=== PATIENT | female | born 1960 | race Caucasian/White ===

== ENCOUNTER 2017-01-14 15:51 | Inpatient (IN) | payer OTHER ==
[2017-01-14] MEDS ORDERED: SODIUM CHLORIDE 0.9% 1,000 ML IV STA (17:11)
--- NOTE | 2017-01-14 17:17 | ED ---
Extremity Problem HPI - General Chief complaint: Extremity Problem,Nontraumatic Stated complaint: Leg Pain/ Poss blood clot Time Seen by Provider: 01/14/17 16:55 Source: patient, RN notes reviewed, old records reviewed Mode of arrival: wheelchair Limitations: no limitations - History of Present Illness Initial comments: This is a 56-year-old female presenting to emergency Department with multiple chief complaints. Patient reports that she has left sided upper quadrant pain for the past 3 weeks. Patient reports that she also has been having intermittent chest pain and shortness of breath. She reports that she has all her medical records and history of [facility]. Patient reports that she does not want to go back there is a continued discharge her. Patient reports that over the past day she's noticed some increased pain in her left lower leg. She has a history of blood clots and has an IVC filter in. Patient reports that her filter is supposedly fractured. Patient states that she's had a stress test done which was all clear proximally month ago. Patient states that she has had no nausea or vomiting. Denies any diarrhea. 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 She reports that due to her Chyna-Danlos syndrome she's had multiple hernia repairs as her connective tissue is continuing to rip. Patient denies any fevers or chills, dysuria, hematuria, vomiting, headache, vision changes or skin changes. - Related Data Home Medications Medication Instructions Recorded Confirmed ALPRAZolam [Xanax] 1 mg PO TID 01/14/17 01/14/17 Aspirin EC [Ecotrin Low Dose] 81 mg PO DAILY 01/14/17 01/14/17 Calcium Carbonate/Vitamin D3 1 tab PO DAILY 01/14/17 01/14/17 [Calcium 600-Vit D3 400 Caplet] Carisoprodol [Soma] 350 mg PO QID 01/14/17 01/14/17 DULoxetine HCL [Cymbalta] 60 mg PO DAILY 01/14/17 01/14/17 Diclofenac Sodium [Voltaren] 75 mg PO BID 01/14/17 01/14/17 Furosemide [Lasix] 20 mg PO DAILY 01/14/17 01/14/17 Gabapentin [Neurontin] 900 mg PO TID 01/14/17 01/14/17 Levothyroxine Sodium [Synthroid] 100 mcg PO DAILY 01/14/17 01/14/17 Multivitamins, Thera [Multivitamin 1 tab PO DAILY 01/14/17 01/14/17 (formulary)] [place]-3 Fatty Acids/Fish Oil [Fish 1 cap PO BID 01/14/17 01/14/17 Oil 1,000 mg Capsule] Pramipexole [Mirapex] 0.5 mg PO HS 01/14/17 01/14/17 QUEtiapine [SEROquel] 100 mg PO HS 01/14/17 01/14/17 oxyCODONE-APAP 10-325MG [Percocet 1 tab PO QID PRN 01/14/17 01/14/17 10-325 mg] Allergies Allergy/AdvReac Type Severity Reaction Status Date / Time Penicillins Allergy Unknown Verified 01/14/17 17:05 rosuvastatin [From Crestor] Allergy Unknown Verified 01/14/17 17:05 Bviucsm-Dvs-Jkz Reductase Allergy Unknown Verified 01/14/17 17:05 Inhibitor Review of Systems ROS Statement: Those systems with pertinent positive or pertinent negative responses have been documented in the HPI. ROS Other: All systems not noted in ROS Statement are negative. Past Medical History Past Medical History: Fibromyalgia, Thyroid Disorder Additional Past Medical History / Comment(s): insomnia, chronic back pain, hip, and knee pain. EDS, History of Any Multi-Drug Resistant Organisms: None Reported Past Surgical History: Appendectomy, Back Surgery, Cholecystectomy, Hernia Repair, Hysterectomy, Orthopedic Surgery Past Psychological History: No Psychological Hx Reported Smoking Status: Current every day smoker Past Alcohol Use History: None Reported Past Drug Use History: Marijuana General Exam - General Exam Comments Initial Comments: This is a 56-year-old female. Patient does not appear to be in any acute distress. Limitations: no limitations General appearance: alert, in no apparent distress Head exam: Present: atraumatic, normocephalic, normal inspection Eye exam: Present: normal appearance, PERRL, EOMI. Absent: scleral icterus, conjunctival injection, periorbital swelling ENT exam: Present: normal exam, mucous membranes moist Neck exam: Present: normal inspection. Absent: tenderness, meningismus, lymphadenopathy Respiratory exam: Present: normal lung sounds bilaterally. Absent: respiratory distress, wheezes, rales, rhonchi, stridor Cardiovascular Exam: Present: regular rate, normal rhythm, normal heart sounds. Absent: systolic murmur, diastolic murmur, rubs, gallop, clicks GI/Abdominal exam: Present: soft, tenderness (Left upper quadrant tenderness.), normal bowel sounds. Absent: distended, guarding, rebound, rigid Extremities exam: Present: normal inspection, full ROM, normal capillary refill , other (Patient reports left sided calf Tenderness and bruising.). Absent: tenderness, pedal edema, joint swelling, calf tenderness Back exam: Present: normal inspection Neurological exam: Present: alert, oriented X3, CN II-XII intact Psychiatric exam: Present: normal affect, normal mood Skin exam: Present: warm, dry, intact, normal color. Absent: rash Course Vital Signs 01/14/17 01/14/17 01/14/17 16:05 16:57 18:37 Temperature 98.3 F 98.8 F 98.5 F Pulse Rate 83 70 76 Respiratory 18 16 16 Rate Blood Pressure 112/55 110/55 130/60 O2 Sat by Pulse 97 100 97 Oximetry 01/14/17 01/14/17 01/14/17 18:55 20:03 21:19 Temperature 97.7 F 98.3 F Pulse Rate 69 75 64 Respiratory 16 16 18 Rate Blood Pressure 130/60 109/54 113/81 O2 Sat by Pulse 97 96 95 Oximetry - Reevaluation(s) Reevaluation #1: 01/14/17 21:09 I did review patient's previous medical records from [facility]. She did receive a CT angiogram of the chest with contrast on 12/28/2016. The findings showed no filling defects or lack of contrast. Lung parenchyma demonstrates no focal treated or consolidative process. No pleural effusion. Thyroid gland appear normal. There is enlargement of the main pulmonary artery outflow track measuring up to 3.6 cm. No pericardial effusion, no mediastinal or hilar lymphadenopathy. On the same day patient also r myocardial perfusion imaging. The impression was noted to have no reversible ischemia, left ventricular ejection fraction is 56%. also received a CT abdomen and pelvis at that time. He shows no focal inflammatory process in the abdomen or pelvis. Postsurgical changes within the anterior abdominal wall with a small amount of simple appearing fluid seen in the operative site likely related to a small residual postsurgical seroma. Medical Decision Making - Medical Decision Making This is a 56-year-old female presenting to emergency Department with multiple chief complaints. Patient reports that she has left sided upper quadrant pain for the past 3 weeks. Patient reports that she also has been having intermittent chest pain and shortness of breath. She reports that she has all her medical records and history of [facility]. Patient reports that she does not want to go back there is a continued discharge her. Patient reports that over the past day she's noticed some increased pain in her left lower leg. She has a history of blood clots and has an IVC filter in. Patient reports that her filter is supposedly fractured. Patient states that she's had a stress test done which was all clear proximally month ago. Patient states that she has had no nausea or vomiting. Asians upper ultrasound was negative. Chest x-ray and KUB x-ray also benign. Patient's lab work was reviewed. The only abnormality was a mildly elevated d- dimer 0.65. Patient did receive a CT DAVALOS chest. Initially the radiologist read that there was no pulmonary and wasn't. tax examining technician stated that she saw something abnormal and pointed it out to myself. I did talk to Dr. Sharif over the phone and he reread the CT. Dr. Sharif now concludes that there is a pulmonary embolism was him represent on it and 86. Patient will be started on high dose heparin. Discussed that she does not need a further CTs of her abdomen and pelvis at this time as patient has had a full workup done at [facility]. Patient's images were reviewed. Her CT abdomen and pelvis showed evidence of surgical seroma. Nuclear medicine stress test showed no acute ischemic changes. CT of DAVALOS chest at that time was negative for PE. Vessels case with Dr. Templeton. Patient will be admitted to Dr. Blake take [facility] call. - Lab Data Result diagrams: 01/14/17 17:45 01/14/17 17:45 Lab Results 01/14/17 01/14/17 01/14/17 Range/Units 17:45 17:45 17:45 WBC 7.8 (3.8-10.6) k/uL RBC 4.08 (3.80-5.40) m/uL Hgb 14.2 (11.4-16.0) gm/dL Hct 41.9 (34.0-46.0) % MCV 102.8 H (80.0-100.0) fL MCH 34.7 (25.0-35.0) pg MCHC 33.8 (31.0-37.0) g/dL RDW 13.7 (11.5-15.5) % Plt Count 234 (150-450) k/uL Neutrophils % 65 % Lymphocytes % 28 % Monocytes % 3 % Eosinophils % 2 % Basophils % 1 % Neutrophils # 5.0 (1.3-7.7) k/uL Lymphocytes # 2.2 (1.0-4.8) k/uL Monocytes # 0.2 (0-1.0) k/uL Eosinophils # 0.2 (0-0.7) k/uL Basophils # 0.0 (0-0.2) k/uL Macrocytosis Slight PT (9.0-12.0) sec INR (<1.1) APTT (22.0-30.0) sec D-Dimer (<0.60) mg/L FEU Sodium 140 (137-145) mmol/L Potassium 4.1 (3.5-5.1) mmol/L Chloride 107 (98-107) mmol/L Carbon Dioxide 24 (22-30) mmol/L Anion Gap 9 mmol/L BUN 15 (7-17) mg/dL Creatinine 0.73 (0.52-1.04) mg/dL Est GFR (MDRD) Af Amer >60 (>60 ml/min/1.73 sqM) Est GFR (MDRD) Non-Af >60 (>60 ml/min/1.73 sqM) Glucose 103 H (74-99) mg/dL Calcium 8.9 (8.4-10.2) mg/dL Magnesium 2.0 (1.6-2.3) mg/dL Total Bilirubin 0.5 (0.2-1.3) mg/dL AST 24 (14-36) U/L ALT 24 (9-52) U/L Alkaline Phosphatase 80 (38-126) U/L Total Creatine Kinase 55 (30-135) U/L CK-MB (CK-2) 0.5 (0.0-2.4) ng/mL CK-MB (CK-2) Rel Index 0.9 Troponin I <0.012 (0.000-0.034) ng/mL NT-Pro-B Natriuret Pep pg/mL Total Protein 6.8 (6.3-8.2) g/dL Albumin 3.9 (3.5-5.0) g/dL Amylase 50 (30-110) U/L Lipase 95 (23-300) U/L Urine Color Urine Appearance (Clear) Urine pH (5.0-8.0) Ur Specific [place] (1.001-1.035) Urine Protein (Negative) Urine Glucose (UA) (Negative) Urine Ketones (Negative) Urine Blood (Negative) Urine Nitrite (Negative) Urine Bilirubin (Negative) Urine Urobilinogen (<2.0) mg/dL Ur Leukocyte Esterase (Negative) Urine RBC (0-5) /hpf Urine WBC (0-5) /hpf Amorphous Sediment (None) /hpf Urine Bacteria (None) /hpf Urine Mucus (None) /hpf 01/14/17 01/14/17 01/14/17 Range/Units 17:45 17:45 18:45 WBC (3.8-10.6) k/uL RBC (3.80-5.40) m/uL Hgb (11.4-16.0) gm/dL Hct (34.0-46.0) % MCV (80.0-100.0) fL MCH (25.0-35.0) pg MCHC (31.0-37.0) g/dL RDW (11.5-15.5) % Plt Count (150-450) k/uL Neutrophils % % Lymphocytes % % Monocytes % % Eosinophils % % Basophils % % Neutrophils # (1.3-7.7) k/uL Lymphocytes # (1.0-4.8) k/uL Monocytes # (0-1.0) k/uL Eosinophils # (0-0.7) k/uL Basophils # (0-0.2) k/uL Macrocytosis PT 9.7 (9.0-12.0) sec INR 0.9 (<1.1) APTT 26.1 (22.0-30.0) sec D-Dimer 0.65 H (<0.60) mg/L FEU Sodium (137-145) mmol/L Potassium (3.5-5.1) mmol/L Chloride (98-107) mmol/L Carbon Dioxide (22-30) mmol/L Anion Gap mmol/L BUN (7-17) mg/dL Creatinine (0.52-1.04) mg/dL Est GFR (MDRD) Af Amer (>60 ml/min/1.73 sqM) Est GFR (MDRD) Non-Af (>60 ml/min/1.73 sqM) Glucose (74-99) mg/dL Calcium (8.4-10.2) mg/dL Magnesium (1.6-2.3) mg/dL Total Bilirubin (0.2-1.3) mg/dL AST (14-36) U/L ALT (9-52) U/L Alkaline Phosphatase (38-126) U/L Total Creatine Kinase (30-135) U/L CK-MB (CK-2) (0.0-2.4) ng/mL CK-MB (CK-2) Rel Index Troponin I (0.000-0.034) ng/mL NT-Pro-B Natriuret Pep 42 pg/mL Total Protein (6.3-8.2) g/dL Albumin (3.5-5.0) g/dL Amylase (30-110) U/L Lipase (23-300) U/L Urine Color Yellow Urine Appearance Clear (Clear) Urine pH 7.0 (5.0-8.0) Ur Specific [place] 1.015 (1.001-1.035) Urine Protein Negative (Negative) Urine Glucose (UA) Negative (Negative) Urine Ketones Negative (Negative) Urine Blood Negative (Negative) Urine Nitrite Negative (Negative) Urine Bilirubin Negative (Negative) Urine Urobilinogen <2.0 (<2.0) mg/dL Ur Leukocyte Esterase Trace H (Negative) Urine RBC <1 (0-5) /hpf Urine WBC 2 (0-5) /hpf Amorphous Sediment Rare H (None) /hpf Urine Bacteria Rare H (None) /hpf Urine Mucus Rare H (None) /hpf 01/14/17 17:23 EKG shows normal sinus rhythm. Ventricular rate of 73 bpm. ND interval 158 ms. QRS duration 94 ms. QT QTc is 48/449 ms. No evidence of ST elevation or T -wave inversion or atrial or ventricular arrhythmias. - Radiology Data Radiology results: report reviewed CT DAVALOS chest Exam is reviewed and is evidence of small emboli filling defect in the right lower lobe pulmonary artery at the medial basal segment branch. This exam is positive for PE in the right lower lobe. This is best seen on image 86. The Venous Dopplers negative for DVT. No evidence of mass in the area of the palpable lump. Chest x-ray shows mild cardiomegaly. No acute lung disease Disposition Clinical Impression: Pulmonary embolism Disposition: ADMITTED IP TO THIS HOSP Condition: Stable Time of Disposition: 21:20
[2017-01-14] MEDS: SODIUM CHLORIDE 0.9% 1,000 ML IV STA ×2 (17:37→23:56)
[2017-01-14 17:51] LABS: Basophils % (A) 1 %; CH 35.5; CHCM 34.7; Eosinophils # (A) 0.2 k/uL (0-0.7); Eosinophils % (A) 2 %; HCT 41.9 % (34.0-46.0); HDW 2.63; HGB 14.2 gm/dL (11.4-16.0); Luc % (Auto) 1; Lymphocytes # (A) 2.2 k/uL (1.0-4.8); Lymphocytes % (A) 28 %; MCH 34.7 pg (25.0-35.0); MCHC 33.8 g/dL (31.0-37.0); MCV 102.8 fL (80.0-100.0); Macrocytosis Slight; Mean Platelet Volume 7.2; Monocytes # (A) 0.2 k/uL (0-1.0); Monocytes % (A) 3 %; Neutrophils % (A) 65 %; RBC 4.08 m/uL (3.80-5.40); RDW 13.7 % (11.5-15.5); WBC 7.8 k/uL (3.8-10.6)
[2017-01-14 17:58] LABS: ALT 24 U/L (9-52); AST 24 U/L (14-36); Alkaline Phosphatase 80 U/L (38-126); Amylase 50 U/L (30-110); Anion Gap 9 mmol/L; Blood Urea Nitrogen 15 mg/dL (7-17); Calcium 8.9 mg/dL (8.4-10.2); Carbon Dioxide 24 mmol/L (22-30); Chloride 107 mmol/L (98-107); Glucose 103 mg/dL (74-99); Non-African American GFR(MDRD) >60 (>60 ml/min/1.73 sqM); Potassium 4.1 mmol/L (3.5-5.1); Sodium 140 mmol/L (137-145); Total Bilirubin 0.5 mg/dL (0.2-1.3); Total Protein 6.8 g/dL (6.3-8.2)
[2017-01-14 18:06] LABS: INR 0.9 (<1.1); Partial Thromboplastin Time 26.1 sec (22.0-30.0); Prothrombin Time 9.7 sec (9.0-12.0)
[2017-01-14 18:15] LABS: Creatine Kinase 55 U/L (30-135)
--- NOTE | 2017-01-14 18:19 | US ---
EXAMINATION TYPE: US venous doppler duplex LE LT DATE OF EXAM: 01/14/2017 6:10 PM COMPARISON: NONE CLINICAL HISTORY: Pain. SIDE PERFORMED: Left TECHNIQUE: The lower extremity deep venous system is examined utilizing real time linear array sonog nirmal with graded compression, doppler sonography and color-flow sonography. VESSELS IMAGED: External Iliac Vein (EIV) Common Femoral Vein Deep Femoral Vein Greater Saphenous Vein * Femoral Vein Popliteal Vein Small Saphenous Vein * Proximal Calf Veins (* superficial vessels) Left Leg: Negative for DVT. No abnormality visualized at the area of the patient's palpable lump. IMPRESSION: No evidence of deep venous thrombosis. No sonographic evidence of a mass in the area o f the palpable lump.
[2017-01-14 18:27] LABS: Creatine Kinase MB 0.5 ng/mL (0.0-2.4); Troponin I <0.012 ng/mL (0.000-0.034)
[2017-01-14] MEDS ORDERED: RX INFO: IV CONTRAST WAS GIVEN 1 EACH MISC MISCELLANE PRN (18:33)
--- NOTE | 2017-01-14 18:33 | XR ---
EXAMINATION TYPE: XR KUB DATE OF EXAM: 01/14/2017 COMPARISON: NONE HISTORY: Abdominal pain TECHNIQUE: 2 views FINDINGS: There is no sign of intestinal obstruction or pneumoperitoneum. Fecal pattern is normal. Th ere are no pathologic calcifications over the kidneys. There are clips from cholecystectomy. There is no sign of a mass. IMPRESSION: Nonacute abdomen. Inferior vena cava filter is noted.
--- NOTE | 2017-01-14 18:33 | XR ---
EXAMINATION TYPE: XR chest 2V DATE OF EXAM: 01/14/2017 COMPARISON: NONE HISTORY: Chest pain TECHNIQUE: Frontal and lateral views of the chest are obtained. FINDINGS: There is no heart failure nor confluent pneumonic infiltrate. Heart appears slightly enlar ged. There is no pleural effusion. There are chest leads. Bony thorax appears intact. IMPRESSION: Mild cardiomegaly. No acute lung disease.
[2017-01-14] MEDS ORDERED: HYDROmorphone 1 MG/ML 1 ML SYRINGE IVP STA ×2 (18:34→20:25)
[2017-01-14 19:11] LABS: Amorphous Sediment,Urine Rare /hpf; Appearance,Urine Clear (Clear); Bacteria,Urine Rare /hpf; Bilirubin,Urine Negative (Negative); Glucose,Urine (UA) Negative (Negative); Ketones,Urine Negative (Negative); Leukocyte Esterase,Urine Trace (Negative); Mucus,Urine Rare /hpf; Nitrite,Urine Negative (Negative); Particle Count 5475; Protein,Urine Negative (Negative); RBC,Urine <1 /hpf (0-5); Specific Gravity,Urine 1.015 (1.001-1.035); UA Billing (MACRO vs. MICRO) MICRO; Urobilinogen,Urine <2.0 mg/dL (<2.0); WBC,Urine 2 /hpf (0-5)
--- NOTE | 2017-01-14 19:27 | CT ---
EXAMINATION TYPE: CT chest angio for PE DATE OF EXAM: 01/14/2017 COMPARISON: NONE HISTORY: Shortness of breath and chest pain. CT DLP: 635.4 mGycm Automated exposure control for dose reduction was used. CONTRAST: CT Chest for pulmonary embolism performed with with IV Contrast, patient injected with 100 mL of Omni paque 350. FINDINGS: There are 3-D post processed images. I see no filling defects in the pulmonary arteries. There is no evidence of aortic aneurysm or dissec tion. Heart size is normal. There is no pericardial effusion. There are no hilar masses. There is no mediastinal adenopathy. The lungs are clear of consolidation. There is no evidence of a pulmonary mass. There is no pleural e ffusion. There are small linear density at the right posterior lung base. There is spurring in the th oracic spine. I see no focal bone destruction. Inferior vena cava filter is noted. IMPRESSION: No evidence of pulmonary embolism. Minimal subsegmental atelectasis or scarring at the right posterio r lung base.
[2017-01-14] MEDS ORDERED: HEPARIN SODIUM,PORCINE 10,000 UNIT/ML 1 ML VIAL IV ONE (20:54)
[2017-01-14] MEDS: HEPARIN SODIUM,PORCINE 5,000 UNIT/ML 1 ML VIAL IV PRN (21:10)
[2017-01-14] MEDS: HEPARIN SODIUM,PORCINE/D5W PMX 25,000 UNIT in DEXTROSE/WATER 1 500ML.BAG IV SCH (21:17)
[2017-01-14] MEDS ORDERED: NALOXONE 0.4 MG/ML 1 ML VIAL IV PRN (21:20)
[2017-01-14] MEDS ORDERED: KETOROLAC 30 MG/ML 1 ML VIAL IVP PRN (21:20)
[2017-01-14] MEDS ORDERED: ACETAMINOPHEN TAB 325 MG TAB PO PRN (21:20)
[2017-01-14] MEDS ORDERED: LORazepam 2 MG/ML SYRINGE IV PRN (21:20)
[2017-01-14] MEDS ORDERED: ONDANSETRON 4 MG/2 ML VIAL IVP PRN (21:20)
[2017-01-14] MEDS ORDERED: PRAMIPEXOLE 0.5 MG TAB PO STA (22:24)
[2017-01-14] MEDS ORDERED: QUEtiapine 100 MG TAB PO STA (22:24)
[2017-01-14] MEDS ORDERED: ETODOLAC 400 MG TAB PO STA (22:46)
[2017-01-14 23:01] VITALS: BMI 42.9
[2017-01-14] MEDS: HYDROmorphone 1 MG/ML 1 ML SYRINGE IV PRN (23:53)
[2017-01-14] MEDS: ALPRAZolam 0.5 MG TAB PO SCH (23:55)
[2017-01-14] MEDS: GABAPENTIN 300 MG CAP PO SCH (23:56)
[2017-01-15] MEDS: SODIUM CHLORIDE 0.9% 1,000 ML IV SCH ×3 (06:34→18:48)
[2017-01-15] MEDS: LEVOTHYROXINE 100 MCG TAB PO SCH (06:36)
[2017-01-15 06:49] LABS: Basophils % (A) 0 %; CH 34.5; CHCM 33.6; Eosinophils # (A) 0.2 k/uL (0-0.7); Eosinophils % (A) 3 %; HCT 39.5 % (34.0-46.0); HDW 2.74; HGB 13.7 gm/dL (11.4-16.0); Luc # (Auto) 0.12; Luc % (Auto) 3; Lymphocytes # (A) 2.3 k/uL (1.0-4.8); Lymphocytes % (A) 49 %; MCH 35.9 pg (25.0-35.0); MCHC 34.6 g/dL (31.0-37.0); MCV 103.5 fL (80.0-100.0); Macrocytosis Slight; Mean Platelet Volume 7.1; Monocytes # (A) 0.2 k/uL (0-1.0); Monocytes % (A) 4 %; Neutrophils # (A) 1.9 k/uL (1.3-7.7); Neutrophils % (A) 41 %; RBC 3.82 m/uL (3.80-5.40); RDW 13.6 % (11.5-15.5); WBC 4.7 k/uL (3.8-10.6); WBC (Perox) 4.94
[2017-01-15] MEDS: HYDROmorphone 1 MG/ML 1 ML SYRINGE IV PRN ×4 (08:24→21:26)
[2017-01-15] MEDS: ALPRAZolam 0.5 MG TAB PO SCH ×3 (08:25→21:26)
[2017-01-15] MEDS: GABAPENTIN 300 MG CAP PO SCH ×3 (08:27→21:26)
[2017-01-15] MEDS: DULoxetine HCL 60 MG CAPSULE.DR PO SCH (08:28)
[2017-01-15] MEDS: FUROSEMIDE 20 MG TAB PO SCH (08:28)
[2017-01-15] MEDS: ETODOLAC 400 MG TAB PO SCH ×2 (08:28→21:25)
[2017-01-15] MEDS: ASPIRIN 81 MG CHEW PO SCH (08:41)
[2017-01-15] MEDS ORDERED: PANTOPRAZOLE 40 MG/10 ML VIAL IV SCH (09:00)
[2017-01-15] MEDS: HEPARIN SODIUM,PORCINE/D5W PMX 25,000 UNIT in DEXTROSE/WATER 1 500ML.BAG IV SCH ×2 (09:45→21:26)
[2017-01-15] MEDS: CALCIUM CARB-VIT D 500MG-200UN 1 EACH TAB PO SCH (13:20)
--- NOTE | 2017-01-15 15:37 | P.PN ---
Subjective 56-year-old female seen in the emergency room shortness of breath. Patient presents emergency room with a chief complaint of left-sided upper quadrant pain stated it started 3 weeks prior. States it's been intermittent. States she receives most healthcare [facility] patient gives a history of having blood clots has IVC filter in patient denies any nausea vomiting denies any diarrhea does have a history of teresa danlos Computed tomography scan of the chest shows right lower lobe pulmonary emboli patient currently is on IV heparin Doppler to the left leg show no evidence of a DVT consults for hematology and pulmonary pending Objective - Vital Signs Vital signs: Vital Signs Temp 98 F 01/15/17 12:00 Pulse 71 01/15/17 12:00 Resp 18 01/15/17 12:00 BP 116/62 01/15/17 12:00 Pulse Ox 93 L 01/15/17 12:00 Intake & Output 01/14/17 01/15/17 01/15/17 18:59 06:59 18:59 Intake Total 1280.987 850.677 Output Total 650 Balance 1280.987 200.677 Weight 113.398 kg 122.3 kg Intake: IV 900 Sodium Chloride 0.9% 1, 900 000 ml @ 100 mls/hr IV . Q10H JUSTINA Rx#:[id number] Intake, IV Titration 380.987 113.677 Amount Heparin Sodium,Porcine/ 380.987 113.677 D5w Pmx 25,000 unit In Dextrose/Water 1 500ml. bag @ 18 UNITS/KG/HR 40. 82 mls/hr IV .[id number] JUSTINA Rx#:[id number] Oral 737 Output: Urine 650 Other: # Voids 1 3 - Exam Physical exam 56-year-old female sitting present on Distress Lungs essentially clear adequate air movement Heart S1-S2 audible regular no murmur Abdomen soft nontender not distended no nausea no vomiting Extremities no edema - Labs CBC & Chem 7: 01/15/17 06:25 01/14/17 17:45 Labs: Abnormal Lab Results - Last 24 Hours (Table) 01/14/17 01/14/17 01/14/17 Range/Units 17:45 17:45 17:45 MCV 102.8 H (80.0-100.0) fL MCH (25.0-35.0) pg APTT (22.0-30.0) sec D-Dimer 0.65 H (<0.60) mg/L FEU Glucose 103 H (74-99) mg/dL Ur Leukocyte Esterase (Negative) Amorphous Sediment (None) /hpf Urine Bacteria (None) /hpf Urine Mucus (None) /hpf 01/14/17 01/15/17 01/15/17 Range/Units 18:45 02:38 06:25 MCV 103.5 H (80.0-100.0) fL MCH 35.9 H (25.0-35.0) pg APTT 88.9 H (22.0-30.0) sec D-Dimer (<0.60) mg/L FEU Glucose (74-99) mg/dL Ur Leukocyte Esterase Trace H (Negative) Amorphous Sediment Rare H (None) /hpf Urine Bacteria Rare H (None) /hpf Urine Mucus Rare H (None) /hpf 01/15/17 Range/Units 12:55 MCV (80.0-100.0) fL MCH (25.0-35.0) pg APTT 48.3 H (22.0-30.0) sec D-Dimer (<0.60) mg/L FEU Glucose (74-99) mg/dL Ur Leukocyte Esterase (Negative) Amorphous Sediment (None) /hpf Urine Bacteria (None) /hpf Urine Mucus (None) /hpf Assessment and Plan Plan: Impression Present on admission left sided upper quadrant pain onset 3 weeks prior with intermittent episodes of shortness of breath suspect due to a pulmonary emboli right lobe History of previous pulmonary emboli with IVC filter in place Prior nuclear stress test done one month prior report indicates no acute ischemic changes Recent computed tomography scan of the chest showed no evidence of a pulmonary emboli Depressive disorder nonspecified Plan Await pulmonary's eval pending Await Dr. Hester's eval reoccurring pulmonary emboli Resume home meds as appropriate Follow up on the echocardiogram continue IV heparin DVT and GI prophylaxis The above dictated assessment and findings were discussed with dr warner . Impression and the plan of care have been dictated as directed. Padmini Khan nurse practitioner acting as a scribe for dr warner .
--- NOTE | 2017-01-15 17:35 | CONS ---
Lupe Templeton is a 56-year-old female who comes in with shortness of breath for about 3 weeks' duration. She also had been having some chest pain which is intermittent. She was seen at [facility]. Apparently a CT scan was done, which showed no evidence of any PE. She also had abdominal pain and subsequently came back to the ED, as she had ongoing symptomatology. PAST MEDICAL HISTORY: Positive for pulmonary emboli in the past, Kumar filter placement apparently 12 years ago, at which time she had been on Coumadin for approximately a year and this had been discontinued. History of chronic back pain, hip pain, knee pain, fibromyalgia, history of Chyna-Danlos syndrome, appendectomy, back surgery, hernia repair. SOCIAL HISTORY: The patient smokes marijuana. She smokes about a pack of cigarettes per day. FAMILY HISTORY: Negative for history of thromboembolism. Medications prior to admission were: 1. Seroquel. 2. Mirapex. 3. Lasix. 4. Ecotrin. 5. Fish oil. 6. Multivitamin. 7. Soma. 8. Calcium with vitamin D3. 9. Xanax. 10. Percocet. 11. Voltaren. 12. Cymbalta. 13. Synthroid. 14. Neurontin. REVIEW OF SYSTEMS: Positive for obesity. On physical examination, respiratory rate is 18, pulse rate of 77. She is afebrile. Blood pressure 97/54, O2 sat on room air is 94%. HEENT: Unremarkable. CHEST: Clear. CARDIOVASCULAR: S1 and S2. ABDOMEN: Soft. There is trace pedal edema. There is some tenderness in the left calf. Venous duplex of the left lower extremity is negative for blood clots. CT scan of the chest shows evidence of pulmonary embolus in the right lower lobe, pulmonary artery in the medial basal segment branch. IMPRESSION: 1. Recurrent pulmonary embolism. Will continue IV heparin and would recommend lifelong anticoagulation. 2. Would recommend Hematology/Oncology evaluation. 3. Keep her on supplemental oxygen. Increase her activity level. Continue her on her current medications, which were reviewed. She was counseled regarding her condition and these recommendations, has a fair understanding of these recommendations.
--- NOTE | 2017-01-15 20:06 | P.CONS ---
History of Present Illness - Reason for Consult Consult date: 01/15/17 Recurrent pulmonary embolism - History of Present Illness The patient is a 56-year-old lady with multiple medical problems. 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 Her prior episode apparently was diagnosed after admission for cervical fusion. She was treated with the Coumadin for about a year and also had an IVC filter placed. She states that she had a hypercoagulable workup done subsequently which was negative. She could not recall any other aggravating factor per her previous episode. The patient has been feeling somewhat short of breath, with some tightness of the chest for about 3 weeks now. She was seen at [facility], with CT of the chest apparently being negative. Due to progression of symptoms, which included the pleuritic type symptoms, she came to the emergency room here where CTA of the chest revealed evidence of a right lower lobe pulmonary embolus. Dopplers of the lower except these were negative. She was started on IV heparin and admitted further management. She cannot recall any specific aggravating factors such as prolonged travel, surgeries or hospitalizations in the last 3-4 months. Due to her muscular skeletal issues activity level is reduced but she states that she does her best to move around as much as possible. She does continue to smoke. Past Medical History Past Medical History: Fibromyalgia, Thyroid Disorder Additional Past Medical History / Comment(s): insomnia, chronic back pain d/t DDD, hip, and knee pain. EDS History of Any Multi-Drug Resistant Organisms: None Reported Past Surgical History: Appendectomy, Section, Cholecystectomy, Hernia Repair, Hysterectomy, Orthopedic Surgery Additional Past Surgical History / Comment(s): C6-C7 Fusion of the neck, green field filter- which is fractured Past Anesthesia/Blood Transfusion Reactions: No Reported Reaction Past Psychological History: No Psychological Hx Reported Smoking Status: Current every day smoker Past Alcohol Use History: None Reported Past Drug Use History: None Reported Medications and Allergies Home Medications Medication Instructions Recorded Confirmed Type ALPRAZolam [Xanax] 1 mg PO TID 01/14/17 01/14/17 History Aspirin EC [Ecotrin Low Dose] 81 mg PO DAILY 01/14/17 01/14/17 History Calcium Carbonate/Vitamin D3 1 tab PO DAILY 01/14/17 01/14/17 History [Calcium 600-Vit D3 400 Caplet] Carisoprodol [Soma] 350 mg PO QID 01/14/17 01/14/17 History DULoxetine HCL [Cymbalta] 60 mg PO DAILY 01/14/17 01/14/17 History Diclofenac Sodium [Voltaren] 75 mg PO BID 01/14/17 01/14/17 History Furosemide [Lasix] 20 mg PO DAILY 01/14/17 01/14/17 History Gabapentin [Neurontin] 900 mg PO TID 01/14/17 01/14/17 History Levothyroxine Sodium [Synthroid] 100 mcg PO DAILY 01/14/17 01/14/17 History Multivitamins, Thera [Multivitamin 1 tab PO DAILY 01/14/17 01/14/17 History (formulary)] [place]-3 Fatty Acids/Fish Oil [Fish 1 cap PO BID 01/14/17 01/14/17 History Oil 1,000 mg Capsule] Pramipexole [Mirapex] 0.5 mg PO HS 01/14/17 01/14/17 History QUEtiapine [SEROquel] 100 mg PO HS 01/14/17 01/14/17 History oxyCODONE-APAP 10-325MG [Percocet 1 tab PO QID PRN 01/14/17 01/14/17 History 10-325 mg] Allergies Allergy/AdvReac Type Severity Reaction Status Date / Time Penicillins Allergy Unknown Verified 01/14/17 17:05 rosuvastatin [From Crestor] Allergy Unknown Verified 01/14/17 17:05 Mkrkftv-Jbt-Art Reductase Allergy Unknown Verified 01/14/17 17:05 Inhibitor Physical Exam Vitals: Vital Signs Temp Pulse Pulse Resp BP BP Pulse Ox 01/15/17 16:00 68 18 108/66 95 01/15/17 12:00 98 F 71 18 116/62 93 L 01/15/17 08:00 77 18 97/54 94 L 01/15/17 04:00 62 18 94/47 93 L 01/15/17 00:00 72 16 01/14/17 22:50 97.8 F 97 18 103/62 97 01/14/17 21:19 98.3 F 64 18 113/81 95 01/14/17 20:03 75 16 109/54 96 Intake and Output 01/15/17 01/15/17 01/15/17 06:59 14:59 22:59 Intake Total 1180.987 850.677 237 Output Total 650 Balance 1180.987 200.677 237 Intake: IV 800 Sodium Chloride 0.9% 1, 800 000 ml @ 100 mls/hr IV . Q10H JUSTINA Rx#:[id number] Intake, IV Titration 380.987 113.677 Amount Heparin Sodium,Porcine/ 380.987 113.677 D5w Pmx 25,000 unit In Dextrose/Water 1 500ml. bag @ 18 UNITS/KG/HR 40. 82 mls/hr IV .[id number] JUSTINA Rx#:[id number] Oral 737 237 Output: Urine 650 Other: # Voids 3 Weight 122.3 kg Results CBC & Chem 7: 01/15/17 06:25 01/14/17 17:45 Labs: Abnormal Lab Results - Last 24 Hours (Table) 01/15/17 01/15/17 01/15/17 Range/Units 02:38 06:25 12:55 MCV 103.5 H (80.0-100.0) fL MCH 35.9 H (25.0-35.0) pg APTT 88.9 H 48.3 H (22.0-30.0) sec Chest x-ray: report reviewed CT scan - chest: report reviewed Venous US: report reviewed Assessment and Plan (1) Pulmonary embolism Narrative/Plan: This is a recurrent event, with no identifiable new provoking factors. She does have some baseline soft, predisposing factors such as generally reduced level of activity and smoking. She is currently on IV heparin and feeling better. Agree with pulmonary recommendations that the patient should be anticoagulated for life, as long as she tolerates treatment well. As noted, the patient has had a hypercoagulable workup in the past that was negative. She tolerated Coumadin well in the past. As prolonged and the correlation is anticipated, the newer direct factor inhibitors would be quite appropriate for her as long as they're covered by her insurance. She was somewhat apprehensive about side effects. She was advised that it had studies show that the risk of major bleeding is the same or somewhat lesser than Coumadin. While the official antidote is not approved, the effects of the direct factor X inhibitors can be reversed with PCC-4. In addition, clinical trials of a specific antidote have been successful. Status: Acute (2) Macrocytosis without anemia Narrative/Plan: The patient has microcytosis, without anemia. She denies any history of alcohol use. There is no known history of liver disease. Lab work up for the same will be ordered. Status: Acute Plan: The patient has an IVC filter in situ. She was advised that the filters are not reliable after 1-2 years EGD due to development of collaterals. Per the patient, chest x-ray a 24 had shown "fracture" in the filter. According to her request, [facility] surgery will be consulted to evaluate her for the same.
[2017-01-15] MEDS: PRAMIPEXOLE 0.5 MG TAB PO SCH (21:25)
[2017-01-15] MEDS: QUEtiapine 100 MG TAB PO SCH (21:26)
[2017-01-16] MEDS: HYDROmorphone 1 MG/ML 1 ML SYRINGE IV PRN ×6 (01:37→21:36)
[2017-01-16] MEDS: SODIUM CHLORIDE 0.9% 1,000 ML IV SCH ×2 (03:41→15:20)
[2017-01-16] MEDS: LEVOTHYROXINE 100 MCG TAB PO SCH (06:07)
[2017-01-16 06:47] LABS: Basophils % (A) 1 %; CHCM 33.6; Eosinophils # (A) 0.1 k/uL (0-0.7); Eosinophils % (A) 3 %; HDW 2.66; HGB 12.8 gm/dL (11.4-16.0); Luc # (Auto) 0.07; Luc % (Auto) 2; Lymphocytes # (A) 1.7 k/uL (1.0-4.8); Lymphocytes % (A) 42 %; MCH 34.4 pg (25.0-35.0); MCHC 32.9 g/dL (31.0-37.0); MCV 104.6 fL (80.0-100.0); Macrocytosis Slight; Mean Platelet Volume 7.3; Monocytes # (A) 0.2 k/uL (0-1.0); Monocytes % (A) 4 %; Neutrophils # (A) 1.9 k/uL (1.3-7.7); Neutrophils % (A) 48 %; RBC 3.73 m/uL (3.80-5.40); RDW 13.8 % (11.5-15.5); WBC 3.9 k/uL (3.8-10.6); WBC (Perox) 3.97
--- NOTE | 2017-01-16 08:00 | XR ---
EXAMINATION TYPE: XR abdomen 2V DATE OF EXAM ORDERED: 01/16/2017 HISTORY: RLL PE. COMPARISON: Previous study dated 08/02/2017. FINDINGS: The lung bases appear clear. There is been a previous cholecystectomy. An inferior vena cava filter is in place. The abdominal gas pattern is normal. There is no evidence of obstruction or free air. There is a tiny , stable calcification in the right hemipelvis. It would be difficult to exclude a distal right urete miladis calculus. IMPRESSION: 1. NO EVIDENCE OF OBSTRUCTION. 2. IT WOULD BE DIFFICULT TO EXCLUDE A DISTAL RIGHT URETERIC CALCULUS.
[2017-01-16] MEDS: ETODOLAC 400 MG TAB PO SCH ×2 (08:58→21:31)
[2017-01-16] MEDS: ASPIRIN 81 MG CHEW PO SCH (08:59)
[2017-01-16] MEDS: GABAPENTIN 300 MG CAP PO SCH ×3 (08:59→21:35)
[2017-01-16] MEDS: DULoxetine HCL 60 MG CAPSULE.DR PO SCH (08:59)
[2017-01-16] MEDS: FUROSEMIDE 20 MG TAB PO SCH (08:59)
[2017-01-16] MEDS: PANTOPRAZOLE 40 MG TABLET PO SCH (09:00)
[2017-01-16] MEDS: ALPRAZolam 0.5 MG TAB PO SCH ×3 (09:00→21:34)
--- NOTE | 2017-01-16 10:05 | HP ---
DATE OF ADMISSION: 01/14/2017 CHIEF COMPLAINT: A 56-year-old white female presents with left upper quadrant pain for the past 3 weeks, intermittent chest pain, shortness of breath. She has had some pain and increased lower leg. History of blood clots, has an IVC filter. Her filter was supposedly fractured. She had a stress test done a month ago. No nausea or vomiting. She has a history of Chyna-Danlos syndrome. She has had multiple hernia repairs, connective tissue is beginning to rip. Home medications of: 1. Xanax. 2. Aspirin. 3. Calcium. 4. Vitamin D. 5. Soma. 6. Cymbalta. 7. Voltaren. 8. Lasix. 9. Neurontin. 10. Synthroid. 11. Mirapex. 12. Seroquel. 13. Percocet. ALLERGIES: PENICILLIN, LOVASTATIN. REVIEW OF SYSTEMS: Fourteen-point review of systems negative except for as mentioned in HPI. PAST MEDICAL HISTORY: Fibromyalgia, hypothyroidism, insomnia, chronic back pain, hip and neck pain, EDS. SURGICAL HISTORY: Appendectomy, back surgery, cholecystectomy, hernia repair, hysterectomy, orthopedic surgery. SOCIAL HISTORY: Current every day smoker. Marijuana. No alcohol. PHYSICAL EXAM: Vital signs are reviewed. CARDIOVASCULAR: S1, S2. LUNGS: Scattered decreased breath sounds on the right side. CARDIOVASCULAR: S1, S2. HEMATOLOGIC: Negative Homans. PSYCHIATRIC: Fair mood and affect. VASCULAR: Normal dorsalis pedis, posterior tibial and radial pulse. INTEGUMENT: No rash, excoriation, bruising. NEUROLOGIC: Alert and oriented x3. OPHTHALMOLOGIC: Pupils equal, round and reactive to light and accommodation. Temperature 98, pulse 76, 83, respiratory rate 16 to 18, blood pressure is 110 to 130/60's. 02 is 97% to 100% on room air. Blood pressure 113 to 130 over 60s to 80s. Pulse 60s to 70s. Pulse ox 95% to 97% on room air. CT scan of the chest done 12/28/2016 showed no filling defects. Stress test show no reversible ischemia. Ejection fraction 56% back a few months ago also. CT scan was also done. ASSESSMENT: 1. Acute pulmonary embolism seen on CT scan at this time. High-dose heparin will be given. 2. Chyna-Danlos syndrome. 3. Chronic pain syndrome. 4. Hypothyroidism. 5. Elevated MCV. EKG shows sinus rhythm. Admit the patient hospital. Continue with IV heparin. Await hematology consult, pulmonary consult. Do a venous Doppler to rule out deep venous thrombosis. Please see further orders in the chart.
[2017-01-16] MEDS: HEPARIN SODIUM,PORCINE 5,000 UNIT/ML 1 ML VIAL IV PRN (10:13)
[2017-01-16] MEDS: CALCIUM CARB-VIT D 500MG-200UN 1 EACH TAB PO SCH (11:31)
--- NOTE | 2017-01-16 14:48 | PN ---
DATE OF SERVICE: 01/16/2017 The patient is a 56-year-old female who is seen lying in bed, is awake, alert, comfortable. Denies any pain or worsening shortness of breath. Patient is hemodynamically stable, afebrile, in no acute distress. On physical exam, vital signs, temp is 97.0, heart rate is 68, respiratory rate 18, blood pressure is 110/64. Oxygen saturation is 96% on room air. HEENT: Head is normocephalic, atraumatic. NECK: Supple. Trachea is midline. LUNGS: Essentially clear. No rales or wheezes. HEART: S1 and S2 are heard. Not tachycardic. ABDOMEN: Soft. Bowel sounds are heard. EXTREMITIES: With no edema. NEUROLOGIC: The patient is awake, alert, oriented. LABS: White count is 3.9, hemoglobin is 12.8, hematocrit 39.0 with 176,000 platelets. PTT 44.8. Vitamin B12 is 349. IMAGING: Abdominal x-ray shows no evidence of obstruction, difficult to exclude a distal right ureteric calculus. IMPRESSION: Recurrent pulmonary embolism PLAN: Continue current medications which have been reviewed. Hematology is on consult. Oxygen to maintain O2 saturation greater than or equal to 90%. Continue IV heparin. Continue GI prophylaxis. Increase activity as tolerated. We will follow the patient closely with you, making further changes as necessary. Also recommend lifelong anticoagulation.
--- NOTE | 2017-01-16 15:18 | CT ---
EXAMINATION TYPE: CT abdomen pelvis wo con DATE OF EXAM: 01/16/2017 COMPARISON: NONE HISTORY: Fractured IVC filter. CT DLP: 1072 mGycm Automated exposure control for dose reduction was used. TECHNIQUE: Helical acquisition of images was performed from the lung bases through the pelvis. FINDINGS: LUNG BASES: Mild dependent changes are noted at both lung bases. There is no pleural or pericardial e ffusion. Evaluation of the organs of the abdomen is suboptimal due to lack of intravenous contrast. LIVER/GB: Surgical clips are identified in the gallbladder fossa. PANCREAS: No significant abnormality is seen. SPLEEN: There is splenomegaly. The spleen measures up to 15 cm in AP dimension. ADRENALS: No significant abnormality is seen. KIDNEYS: No significant abnormality is seen. FREE AIR: No free air is visualized RETROPERITONEAL ADENOPATHY: None visualized REPRODUCTIVE ORGANS: The uterus is absent. URINARY BLADDER: No significant abnormality is seen. PELVIC ADENOPATHY: None visualized. OSSEOUS STRUCTURES: Vacuum disc phenomenon is noted at multiple levels. No osteolytic or osteoblasti c lesions are identified. BOWEL: There is pandiverticulosis with multiple foci of inspissated contrast. There is no evidence o f acute diverticulitis. OTHER: An inferior vena cava filter is noted. The apex is at the level of the inlet of the right arnold l vein and is up against the left wall of the inferior vena cava. There are several struts which pene trate the inferior vena cava. Especially along the right side of the cava and posteriorly into the ri ght psoas muscle posteriorly. No metallic fragments are identified which would suggest a fracture. IMPRESSION: AN INFERIOR VENA CAVA FILTER IS NOTED WITH MULTIPLE STRUTS PENETRATING THE INFERIOR VENA CAVA. NO FIN DINGS ARE IDENTIFIED WHICH WOULD SUGGEST FRACTURED FRAGMENTS OF THE INFERIOR VENA CAVA.
[2017-01-16] MEDS: HEPARIN SODIUM,PORCINE/D5W PMX 25,000 UNIT in DEXTROSE/WATER 1 500ML.BAG IV SCH ×2 (15:20→23:10)
--- NOTE | 2017-01-16 15:22 | XR ---
Lumbar spine HISTORY: Fractured inferior vena cava filter 3 views of the lumbar spine One of the struts of the inferior vena cava filter shows a fracture with minimal displacement as note d on CT. Surgical clips are present in the right upper quadrant. There is multilevel spondylosis. Sclerosis present in the posterior elements. Lumbar vertebral bodies show decreased mineralization. Lumbar vertebral bodies show preserved height and alignment. There is loss of disc height at the intervertebral levels. IMPRESSION: Degenerative disc disease, osteopenia, facet arthropathy. Additional findings above.
--- NOTE | 2017-01-16 16:03 | CONS ---
DATE OF CONSULTATION: This is a 56-year-old female. She has been admitted through the emergency room with a history of chest discomfort and pain. Patient had a CT which showed PE on the left side of the left lobe. The patient has been heparinized. She has a history of filter placed about 20 years ago at [facility]. She had x-ray of the abdomen at one of the clinics at [facility] and she was told that her filter has ruptured. Patient has no evidence of belly pain or chest discomfort at this point. Patient has history of Ehler-Danlos syndrome. No history of diabetes. History of obesity. On examination, the head is normocephalic. Chest is clear to auscultation. First and second sounds are normal. ABDOMEN: Soft protuberant. VASCULAR EXAMINATION: Brachial, radial and femoral pulses were present. Patient had a CT of the chest, which ( ) of PE. X-ray of the abdomen showed patient has a filter but they did not mention for any fracture and the patient is very nervous about it. She will be scheduled for CT of the abdomen with and without contrast. Thank you for the consult.
[2017-01-16] MEDS: QUEtiapine 100 MG TAB PO SCH (21:34)
[2017-01-16] MEDS: PRAMIPEXOLE 0.5 MG TAB PO SCH (21:34)
[2017-01-17] MEDS: HYDROmorphone 1 MG/ML 1 ML SYRINGE IV PRN ×8 (00:29→22:33)
[2017-01-17] MEDS: SODIUM CHLORIDE 0.9% 1,000 ML IV SCH ×3 (04:10→22:38)
[2017-01-17] MEDS: LEVOTHYROXINE 100 MCG TAB PO SCH (06:23)
[2017-01-17 06:25] LABS: Basophils % (A) 0 %; CH 34.6; CHCM 33.1; Eosinophils # (A) 0.1 k/uL (0-0.7); Eosinophils % (A) 3 %; HCT 37.7 % (34.0-46.0); HDW 2.63; HGB 12.5 gm/dL (11.4-16.0); Luc # (Auto) 0.07; Luc % (Auto) 2; Lymphocytes # (A) 1.5 k/uL (1.0-4.8); Lymphocytes % (A) 35 %; MCH 34.8 pg (25.0-35.0); MCHC 33.1 g/dL (31.0-37.0); MCV 105.1 fL (80.0-100.0); Macrocytosis Moderate; Mean Platelet Volume 7.3; Monocytes # (A) 0.2 k/uL (0-1.0); Monocytes % (A) 5 %; Neutrophils # (A) 2.3 k/uL (1.3-7.7); Neutrophils % (A) 56 %; RBC 3.59 m/uL (3.80-5.40); RDW 13.7 % (11.5-15.5); WBC 4.2 k/uL (3.8-10.6); WBC (Perox) 4.29
[2017-01-17] MEDS: APIXABAN 2.5 MG TABLET PO SCH ×2 (08:43→22:38)
[2017-01-17] MEDS: DULoxetine HCL 60 MG CAPSULE.DR PO SCH (08:43)
[2017-01-17] MEDS: ALPRAZolam 0.5 MG TAB PO SCH ×3 (08:43→22:45)
[2017-01-17] MEDS: FUROSEMIDE 20 MG TAB PO SCH (08:43)
[2017-01-17] MEDS: ASPIRIN 81 MG CHEW PO SCH (08:43)
[2017-01-17] MEDS: GABAPENTIN 300 MG CAP PO SCH ×3 (08:43→22:39)
[2017-01-17] MEDS: PANTOPRAZOLE 40 MG TABLET PO SCH (08:44)
--- NOTE | 2017-01-17 10:18 | PN ---
This is a 56-year-old female. She has been admitted with a diagnosis of PE. Patient has a history of filter placed about 20 years ago at [facility]. Recently she was at [facility] and she was told that her vena cava has fractured and she has been admitted to [facility]. Patient is on heparin. There is no evidence of DVT noted by ultrasound of the lower extremity. CT of the abdomen and pelvis was performed and there CT report of the vena cava is seen with the filter which is at the level of the right renal vein and indicates against wall of the inferior vena cava. There are no metallic fractures identified, which would suggest fracture. PLAN: At this point, patient is asymptomatic and filter has been placed about 20 years ago, which did not show any fracture of metallic outside the vena cava. It did say there are strictures which penetrates the inferior vena cava especially along the side into the right posterior muscles posteriorly and no metallic fragments are identified, which would suggest a fracture. We will discuss with the internal medicine and patient has evidence of PE. She will be on anticoagulation. We will discuss with the patient.
[2017-01-17] MEDS: CALCIUM CARB-VIT D 500MG-200UN 1 EACH TAB PO SCH (13:07)
--- NOTE | 2017-01-17 13:28 | PN ---
DATE OF SERVICE: 01/17/2017 She has been hemodynamically stable. She has been walking. Blood pressure is 114/59, respiratory rate of 16, pulse rate of 59, temperature 96.9, O2 sat on room air is 96%. HEENT: Unremarkable. CHEST: Clear. Cardiovascular system reveals an S1, S2. ABDOMEN: Soft. There is no edema. Abdominal and pelvis CT showed no findings identified which would suggest fractured fragments of the inferior vena cava filter. IMPRESSION: 1. Acute pulmonary embolus with previous history of pulmonary embolism. 2. Previous status post Kumar filter placement. At this point in time, would recommend lifelong anticoagulation. Did treatment counselor her regarding the pros and cons of Coumadin versus other newer anticoagulants. She understands these issues. Her prognosis at this time is fair.
[2017-01-17] MEDS: QUEtiapine 100 MG TAB PO SCH (22:38)
[2017-01-17] MEDS: PRAMIPEXOLE 0.5 MG TAB PO SCH (22:39)
[2017-01-18] MEDS: HYDROmorphone 1 MG/ML 1 ML SYRINGE IV PRN ×2 (04:29→10:28)
[2017-01-18 06:36] LABS: Basophils % (A) 0 %; CH 35.1; CHCM 34.1; Eosinophils # (A) 0.1 k/uL (0-0.7); Eosinophils % (A) 3 %; HCT 35.9 % (34.0-46.0); HDW 2.56; Luc # (Auto) 0.05; Luc % (Auto) 1; Lymphocytes # (A) 1.2 k/uL (1.0-4.8); Lymphocytes % (A) 32 %; MCH 34.8 pg (25.0-35.0); MCHC 33.6 g/dL (31.0-37.0); MCV 103.6 fL (80.0-100.0); Macrocytosis Slight; Mean Platelet Volume 7.6; Monocytes # (A) 0.2 k/uL (0-1.0); Monocytes % (A) 6 %; Neutrophils # (A) 2.1 k/uL (1.3-7.7); Neutrophils % (A) 58 %; RBC 3.46 m/uL (3.80-5.40); RDW 13.8 % (11.5-15.5); WBC 3.7 k/uL (3.8-10.6); WBC (Perox) 3.84
[2017-01-18] MEDS ORDERED: HYDROmorphone 1 MG/ML 1 ML SYRINGE ONE (07:00)
[2017-01-18] MEDS ORDERED: LEVOTHYROXINE 100 MCG TAB ONE (07:00)
[2017-01-18] MEDS: SODIUM CHLORIDE 0.9% 1,000 ML IV SCH (08:32)
[2017-01-18] MEDS: ALPRAZolam 0.5 MG TAB PO SCH (08:32)
[2017-01-18] MEDS: LEVOTHYROXINE 100 MCG TAB PO SCH (08:33)
[2017-01-18] MEDS: APIXABAN 2.5 MG TABLET PO SCH (08:34)
[2017-01-18] MEDS: GABAPENTIN 300 MG CAP PO SCH (08:34)
[2017-01-18] MEDS: ASPIRIN 81 MG CHEW PO SCH (08:34)
[2017-01-18] MEDS: PANTOPRAZOLE 40 MG TABLET PO SCH (08:34)
[2017-01-18] MEDS: FUROSEMIDE 20 MG TAB PO SCH (08:34)
[2017-01-18] MEDS: DULoxetine HCL 60 MG CAPSULE.DR PO SCH (08:34)
[2017-01-18 09:56] VITALS: BP 120/72; PULSE 80; RESP 16; TEMP 98.4
--- NOTE | 2017-01-18 10:44 | PN ---
SUBJECTIVE: This 56-year-old white female who is still concerned about her IVC, possibly fracture device in her abdomen. Discussed the case with Dr. Graham atkinson. CAT scan shows no fracture of the IVC filter. The patient had the options given to her for Coumadin, Eliquis and Xarelto with all risk factors explained to the patient. She chose Eliquis go on for blood thinner and discussed the case with her. She is up ambulating. She will ambulate today with the Eliquis. Heparin will be discontinued. Patient will then be discharged tomorrow at which time she can drive down and go to [facility] for third opinion if she wants as far as a Kumar filter but she will need to stay on the Eliquis in the meantime. Vital signs are stable, afebrile. CARDIOVASCULAR: S1, S2. LUNGS: Clear. GI: Soft. HEMATOLOGIC: ( ). PSYCHIATRIC: Fair mood and affect. ASSESSMENT: 1. Right lower lobe pulmonary embolism. 2. Anxiety. 3. Obesity. 4. History IVC filter. 5. Hypothyroidism. 6. Gastroesophageal reflux disease. 7. Bipolar. Continue with current treatment. Follow up. Possible discharge home tomorrow at which time she will go down to [place] for a second opinion, pulmonary embolism.
--- NOTE | 2017-01-18 14:58 | PN ---
DATE OF SERVICE: 01/18/2017 She has remained hemodynamically stable. She has been complaining of pain all over. On physical examination vitals are stable. She is afebrile. Chest is clear. Cardiovascular system reveals S1 and S2. Abdomen is soft. There is no edema. IMPRESSION: 1. Pulmonary embolus for which she will require a lifelong anticoagulation. 2. Previous Kumar filter placement with no significant fracture on the CT. Continue current meds. Agree with discharge planning.
[2017-01-18 19:16] LABS: Free Kappa Lt Chain Qnt, Serum 2.26 mg/dL (0.33-1.94)
== END 2017-01-18 11:51 | disposition home or self-care (01) | DRG 176 ==
LOC: EC 15:51 → 6SEL 21:54
PROVIDERS: ADMIT Family Medicine; ATTEND Family Medicine
DX: I26.99 Other pulmonary embolism without acute cor pulmonale (principal); Q79.6 Ehlers-Danlos syndromes; Z68.42 Body mass index [BMI] 45.0-49.9, adult; E66.9 Obesity, unspecified; G89.4 Chronic pain syndrome; M19.91 Primary osteoarthritis, unspecified site; E03.9 Hypothyroidism, unspecified; G47.00 Insomnia, unspecified; M79.7 Fibromyalgia; F12.90 Cannabis use, unspecified, uncomplicated; F32.9 Major depressive disorder, single episode, unspecified; K21.9 Gastro-esophageal reflux disease without esophagitis; F41.9 Anxiety disorder, unspecified; D75.89 Other specified diseases of blood and blood-forming organs; F17.210 Nicotine dependence, cigarettes, uncomplicated; Z98.1 Arthrodesis status; Z86.711 Personal history of pulmonary embolism; Z90.49 Acquired absence of other specified parts of digestive tract; Z90.710 Acquired absence of both cervix and uterus; Z79.82 Long term (current) use of aspirin; Z79.899 Other long term (current) drug therapy; Z95.828 Presence of other vascular implants and grafts
CPT/HCPCS: 36415; 71020; 71275; 72100; 74000; 74020; 74176; 80053; 81001; 82150; 82550; 82553; 82607; 82747; 83690; 83735; 83880; 83883; 83921; 84165; 84484; 85025; 85379; 85610; 85730; 93005; 96361; 96365; 96375; 96376; 99285

== ENCOUNTER 2018-09-25 15:44 | Emergency (ER) | payer OTHER ==
[2018-09-25 15:51] VITALS: BP 140/81; PULSE 82; RESP 18; TEMP 98.2
--- NOTE | 2018-09-25 16:29 | CT ---
EXAMINATION TYPE: CT brain kwabena marmolejo DATE OF EXAM: 09/25/2018 COMPARISON: None HISTORY: slipped on ice, fell hitting back of head Neck pain CT DLP: 1394.8 mGycm Automated exposure control for dose reduction was used. TECHNIQUE: CT scan of the head and cervical spine are performed without contrast. FINDINGS: There is occipital craniotomy defect noted. Ventricles have normal size. There is no mass effect nor midline shift. There is no sign of intracranial hemorrhage. The calvarium shows no fractu re. The cervical vertebra have normal alignment. There is mild degenerative spurring in the lower cervica l spine. There is C6-7 disc space narrowing that could be old anterior fusion. Posterior elements are intact. Facet joints are intact. The skull base is intact. IMPRESSION: Mild spondylotic changes in the cervical spine. No fracture. Previous occipital craniotomy. No acute intracranial abnormality.
--- NOTE | 2018-09-25 16:31 | XR ---
EXAMINATION TYPE: XR lumbar spine 2 or 3V DATE OF EXAM: 09/25/2018 COMPARISON: NONE HISTORY: Fall. Back pain. TECHNIQUE: 3 views FINDINGS: Vertebra have fairly normal alignment. I see no compression fracture. There is mild degener ative disc space narrowing. Posterior elements are intact. There is vena cava filter noted. Sacroilia c joints are intact. IMPRESSION: Spondylotic changes. No fracture seen. There is vena cava filter with fracture of one of the arms.
--- NOTE | 2018-09-25 16:32 | XR ---
EXAMINATION TYPE: XR ankle complete RT DATE OF EXAM: 09/25/2018 COMPARISON: NONE HISTORY: Ankle pain after fall TECHNIQUE: 3 views FINDINGS: Ankle mortise is anatomic. I see no fracture. Joint spaces are fairly normal. There is a pl monica calcaneal spur. IMPRESSION: No acute abnormality of the right ankle. Mild spurring.
--- NOTE | 2018-09-25 16:33 | XR ---
EXAMINATION TYPE: XR Hip Complete RT DATE OF EXAM: 09/25/2018 COMPARISON: NONE HISTORY: Hip pain TECHNIQUE: 2 views FINDINGS: There is some spurring of the acetabulum. There is spurring on the femoral head. I see no f racture. There is slight narrowing of the right hip joint space. Sacroiliac joint is intact. IMPRESSION: Hypertrophic osteoarthritis. No fracture seen.
--- NOTE | 2018-09-25 16:33 | XR ---
EXAMINATION TYPE: XR foot complete RT DATE OF EXAM: 09/25/2018 COMPARISON: NONE HISTORY: Pain TECHNIQUE: 3 views FINDINGS: There is hallux valgus. There is some deformity of the first metatarsal head consistent wit h old surgery. There is some spurring and deformity of the distal second and third metatarsals consis tent with an old injury. I see no acute fracture. There is a plantar calcaneal spur. IMPRESSION: No acute abnormality of the right foot.
--- NOTE | 2018-09-25 16:34 | XR ---
EXAMINATION TYPE: XR knee complete RT DATE OF EXAM: 09/25/2018 COMPARISON: NONE HISTORY: Knee pain TECHNIQUE: 3 views FINDINGS: There is moderate narrowing of the lateral joint space. There is slight genu valgus. There is spurring of the femoral and tibial condyles. There is previous surgery noted. There is moderate sp urring at the patellofemoral joint. IMPRESSION: Moderate hypertrophic osteoarthritis that is worse in the lateral joint space. No fractur e seen.
[2018-09-25] MEDS ORDERED: MORPHINE SULFATE 4 MG/ML SYRINGE IM STA (16:46)
--- NOTE | 2018-09-25 16:49 | ED ---
Fall HPI - General Chief Complaint: Fall Stated Complaint: Fell on ice Time Seen by Provider: 09/25/18 15:53 Source: patient Mode of arrival: wheelchair - History of Present Illness Initial Comments: 57 year female presenting today for chief complaint of fall. Patient states she slipped on ice falling on her right side of her body she states she did hit her head, she states she is on Coumadin. Patient currently complains of headache right-sided hip pain right knee pain and right ankle pain. Patient states she is able to weight-bear on the right side. Patient states she is able to range at the right hip and knee and ankle. Patient admits to right knee swelling. Patient denies any numbness tingling or loss sensation, speech or vision changes. Pt states that she does have mild low back pain, denies loss of bowel bladder control, losss of sensation or muscle weakness of the LE, or urinary retention. Patient has any weakness or sensation deficits. Patient states she was concerned because of the blood thinner and presented for evaluation. Remaining ROS (-), patient denies any recent fever, chills, shortness of breath, chest pain, abdominal pain, nausea or vomiting, numbness or tingling, dysuria or hematuria, constipation or diarrhea, visual changes, or any other complaints. Upon arrival pt VS within acceptable limits. - Related Data Home Medications Medication Instructions Recorded Confirmed ALPRAZolam [Xanax] 1 mg PO TID 01/14/17 01/14/17 Aspirin EC [Ecotrin Low Dose] 81 mg PO DAILY 01/14/17 01/14/17 Calcium Carbonate/Vitamin D3 1 tab PO DAILY 01/14/17 01/14/17 [Calcium 600-Vit D3 400 Caplet] Carisoprodol [Soma] 350 mg PO QID 01/14/17 01/14/17 DULoxetine HCL [Cymbalta] 60 mg PO DAILY 01/14/17 01/14/17 Diclofenac Sodium [Voltaren] 75 mg PO BID 01/14/17 01/14/17 Furosemide [Lasix] 20 mg PO DAILY 01/14/17 01/14/17 Gabapentin [Neurontin] 900 mg PO TID 01/14/17 01/14/17 Levothyroxine Sodium [Synthroid] 100 mcg PO DAILY 01/14/17 01/14/17 Multivitamins, Thera [Multivitamin 1 tab PO DAILY 01/14/17 01/14/17 (formulary)] Morton-3 Fatty Acids/Fish Oil [Fish 1 cap PO BID 01/14/17 01/14/17 Oil 1,000 mg Capsule] Pramipexole [Mirapex] 0.5 mg PO HS 01/14/17 01/14/17 QUEtiapine [SEROquel] 100 mg PO HS 01/14/17 01/14/17 oxyCODONE-APAP 10-325MG [Percocet 1 tab PO QID PRN 01/14/17 01/14/17 10-325 mg] Allergies Allergy/AdvReac Type Severity Reaction Status Date / Time Penicillins Allergy Unknown Verified 09/25/18 15:48 rosuvastatin [From Crestor] Allergy Unknown Verified 09/25/18 15:48 Epyiaww-Bfe-Ueh Reductase Allergy Unknown Verified 09/25/18 15:48 Inhibitor Review of Systems ROS Statement: Those systems with pertinent positive or pertinent negative responses have been documented in the HPI. ROS Other: All systems not noted in ROS Statement are negative. Past Medical History Past Medical History: Fibromyalgia, Thyroid Disorder Additional Past Medical History / Comment(s): insomnia, chronic back pain d/t DDD, hip, and knee pain. EDS History of Any Multi-Drug Resistant Organisms: None Reported Past Surgical History: Appendectomy, Section, Cholecystectomy, Hernia Repair, Hysterectomy, Orthopedic Surgery Additional Past Surgical History / Comment(s): C6-C7 Fusion of the neck, green field filter- which is fractured Past Anesthesia/Blood Transfusion Reactions: No Reported Reaction Past Psychological History: No Psychological Hx Reported Smoking Status: Current every day smoker Past Alcohol Use History: None Reported Past Drug Use History: Marijuana General Exam - General Exam Comments Initial Comments: General: The patient is awake and alert, in no distress, and does not appear acutely ill. Eye: +3 mm pupils are equal, round and reactive to light, extra-ocular movements are intact. No nystagmus. There is normal conjunctiva bilaterally. No signs of icterus. Ears, nose, mouth and throat: There are moist mucous membranes and no oral lesions. No raccoon or [place] sign. Tympanic membranes within normal limits bilaterally Neck: The neck is supple, there is no tenderness or JVD. Cardiovascular: There is a regular rate and rhythm. No murmur, rub or gallop is appreciated. Respiratory: Lungs are clear to auscultation, respirations are non-labored, breath sounds are equal. No wheezes, stridor, rales, or rhonchi. Gastrointestinal: Soft, non-distended, non-tender abdomen without masses or organomegaly noted. There is no rebound or guarding present. No CVA tenderness. Bowel sounds are unremarkable. Musculoskeletal: Normal inspection of the cervicothoracic and lumbar spine. There is no midline tenderness to patient of the cervical or thoracic spine. There is mild midline and paravertebral tenderness of the lumbar. Mild soft tissue swelling of the right knee, extensor mechanism intact. No gross deformity. Patient denies any radiation of the legs negative straight leg raise bilaterally. Patient is able to fully range at the hips, knees and ankles b/l, no tenderness of the left LE and there is pain with ROM of the right side large joints. Strength 5/5 of the LE equal in comparison b/l. Sensation intact of the LE equal in comparison b/l. Radial and DP pulses equal bilaterally 2+. Neurological: A&O x 3. CN II-XII intact, There are no obvious motor or sensory deficits. Coordination appears grossly intact. Speech is normal. Finger to nose is coordinated bilaterally. No gait ataxia. No pronator drift. Skin: Skin is warm and dry and no rashes or lesions are noted. Psychiatric: Cooperative, appropriate mood & affect, normal judgment. Limitations: no limitations Course Vital Signs 09/25/18 15:48 Temperature 98.2 F Pulse Rate 82 Respiratory 18 Rate Blood Pressure 140/81 O2 Sat by Pulse 99 Oximetry Medical Decision Making - Medical Decision Making Well appearing 57yo female with history of chiari malformation and previous craniotomy and PE on coumadin. Pt CT of brain and contrast (-). No osseous abnormalities upon entry studies of the right hip and lumbar spine, right knee and ankle. Patient is neurovascularly intact. Physical examination findings concerning for right knee strain as well as right ankle sprain. Patient has no focal neurological deficits. Patient complains of headache. Patient given morphine for pain management. Patient is on Percocet at home. At this time I do feel patient is stable for discharge with outpatient orthopedic follow-up. Knee immobilizer applied to the right lower extremity. Pt is aware of fracture of IVC filter. At this time I feel pt is stable for discharge. Case discussed with attending provider Dr. Mathur was agreeable patient's plan and discharged. Patient denied questions at this time, she appears please with results as well as discharge plan. Denied questions. Patient will take Percocet for pain management at home. Pt is to f/u with pcp in next 1-2 days. Disposition Clinical Impression: Fall due to ice or snow, Right hip pain, Right ankle sprain, Right knee pain, Head injury Disposition: HOME SELF-CARE Condition: Good Instructions (If sedation given, give patient instructions): Ankle Sprain (ED) , Knee Sprain (ED), Fall Prevention (ED) Additional Instructions: Please use medication as discussed. Please follow-up with orthopedic surgery for evaluation of right knee pain and swelling. Please return to emergency room if the symptoms increase or worsen or for any other concerns. Is patient prescribed a controlled substance at d/c from ED?: No Referrals: Darby Pittman DO [Primary Care Provider] - 1-2 days Giovanni Staley PAC [PHYSICIAN NETWORK SUPPORT ANALYST] - 1-2 days Time of Disposition: 16:52
== END 2018-09-25 17:24 | disposition home or self-care (01) ==
LOC: EC 15:44
DX: S09.90XA Unspecified injury of head, initial encounter (principal); S93.401A Sprain of unspecified ligament of right ankle, initial encounter; M25.551 Pain in right hip; M25.561 Pain in right knee; E07.9 Disorder of thyroid, unspecified; M79.7 Fibromyalgia; F17.200 Nicotine dependence, unspecified, uncomplicated; Z79.82 Long term (current) use of aspirin; Z79.899 Other long term (current) drug therapy; Z88.0 Allergy status to penicillin; Z88.8 Allergy status to other drugs, medicaments and biological substances; Z98.1 Arthrodesis status; W00.0XXA Fall on same level due to ice and snow, initial encounter
CPT/HCPCS: 72100; 73502; 73562; 73610; 73630; 72125; 70450; 99284; 96372; L1830; J2270

== ENCOUNTER 2019-02-04 17:42 | Emergency (ER) | payer OTHER ==
[2019-02-04] MEDS ORDERED: PANTOPRAZOLE 40 MG/10 ML VIAL IVP STA (18:10)
[2019-02-04] MEDS ORDERED: SODIUM CHLORIDE 0.9% 1,000 ML IV STA ×2 (18:10)
[2019-02-04] MEDS ORDERED: ONDANSETRON 4 MG/2 ML VIAL IVP STA (18:10)
[2019-02-04] MEDS ORDERED: HYDROmorphone 1 MG/ML 1 ML SYRINGE IVP STA (18:17)
--- NOTE | 2019-02-04 18:26 | ED ---
Abdominal Pain HPI - General Chief Complaint: Abdominal Pain Stated Complaint: abd pain Time Seen by Provider: 02/04/19 18:07 Source: patient, RN notes reviewed, old records reviewed Mode of arrival: wheelchair Limitations: no limitations - History of Present Illness Initial Comments: Patient is a 38-year-old female who presents emergency Department today with epigastric right upper quadrant abdominal pain, nausea for the past 2 weeks. She reports that she's been having similar pain such as this for a few months that they would come and go. She states is been persistent over the past 2 weeks. She states she does not suffer masses reflux. She is a smoker. Denies any history of heart disease. Patient states that she occasionally has some tram st pain but denies any at this time. Patient states that she has had no vomiting or changes in stools. She reports normal urination. Patient states that she has had a history of appendectomy and cholecystectomy. - Related Data Home Medications Medication Instructions Recorded Confirmed Aspirin EC [Ecotrin Low Dose] 81 mg PO DAILY 01/14/17 02/04/19 Calcium Carbonate/Vitamin D3 1 tab PO DAILY 01/14/17 02/04/19 [Calcium 600-Vit D3 400 Caplet] DULoxetine HCL [Cymbalta] 60 mg PO DAILY 01/14/17 02/04/19 Diclofenac Sodium [Voltaren] 75 mg PO BID 01/14/17 02/04/19 Furosemide [Lasix] 20 mg PO DAILY 01/14/17 02/04/19 Gabapentin [Neurontin] 1,200 mg PO TID 01/14/17 02/04/19 Levothyroxine Sodium [Synthroid] 100 mcg PO DAILY 01/14/17 02/04/19 Multivitamins, Thera [Multivitamin 1 tab PO DAILY 01/14/17 02/04/19 (formulary)] [place]ett-3 Fatty Acids/Fish Oil [Fish 1 cap PO BID 01/14/17 02/04/19 Oil 1,000 mg Capsule] Pramipexole [Mirapex] 0.5 mg PO HS 01/14/17 02/04/19 QUEtiapine [SEROquel] 200 mg PO HS 01/14/17 02/04/19 oxyCODONE-APAP 10-325MG [Percocet 1 tab PO QID PRN 01/14/17 02/04/19 10-325 mg] Loratadine [Claritin] 10 mg PO DAILY 02/04/19 02/04/19 Methocarbamol [Robaxin-750] 750 mg PO TID 02/04/19 02/04/19 Prochlorperazine [Compazine] 5 mg PO Q8HR PRN 02/04/19 02/04/19 Warfarin [Coumadin] 10 mg PO GUO 02/04/19 02/04/19 Warfarin [Coumadin] 12.5 mg PO [id number] 02/04/19 02/04/19 metFORMIN HCL [Glucophage] 500 mg PO BID 02/04/19 02/04/19 Previous Rx's Medication Instructions Recorded Famotidine [Pepcid] 20 mg PO BID #12 tablet 02/04/19 Ondansetron Odt [Zofran Odt] 4 mg PO Q8HR PRN #12 tab 02/04/19 Ondansetron [Zofran ODT] 4 mg PO Q12HR #20 tab 02/04/19 Allergies Allergy/AdvReac Type Severity Reaction Status Date / Time Penicillins Allergy Unknown Verified 02/04/19 17:49 rosuvastatin [From Crestor] Allergy Unknown Verified 02/04/19 17:49 Soaxcrp-Ezd-Gpf Reductase Allergy Unknown Verified 02/04/19 17:49 Inhibitor Review of Systems ROS Statement: Those systems with pertinent positive or pertinent negative responses have been documented in the HPI. ROS Other: All systems not noted in ROS Statement are negative. Past Medical History Past Medical History: Fibromyalgia, Thyroid Disorder Additional Past Medical History / Comment(s): insomnia, chronic back pain d/t DDD, hip, and knee pain. EDS, chiari malformation. History of Any Multi-Drug Resistant Organisms: None Reported Past Surgical History: Appendectomy, Section, Cholecystectomy, Hernia Repair, Hysterectomy, Orthopedic Surgery Additional Past Surgical History / Comment(s): C6-C7 Fusion of the neck, green field filter- which is fractured Past Anesthesia/Blood Transfusion Reactions: No Reported Reaction Past Psychological History: No Psychological Hx Reported Smoking Status: Current every day smoker Past Alcohol Use History: None Reported Past Drug Use History: None Reported General Exam Limitations: no limitations General appearance: alert, in no apparent distress Head exam: Present: atraumatic, normocephalic, normal inspection Eye exam: Present: normal appearance, PERRL, EOMI. Absent: scleral icterus, conjunctival injection, periorbital swelling ENT exam: Present: normal exam, mucous membranes moist Neck exam: Present: normal inspection. Absent: tenderness, meningismus, lymphadenopathy Respiratory exam: Present: normal lung sounds bilaterally. Absent: respiratory distress, wheezes, rales, rhonchi, stridor Cardiovascular Exam: Present: regular rate, normal rhythm, normal heart sounds. Absent: systolic murmur, diastolic murmur, rubs, gallop, clicks GI/Abdominal exam: Present: soft, tenderness (The gastric and right upper quadrant tenderness.), normal bowel sounds. Absent: distended, guarding, rebound, rigid Extremities exam: Present: normal inspection, full ROM, normal capillary refill. Absent: tenderness, pedal edema, joint swelling, calf tenderness Back exam: Present: normal inspection Neurological exam: Present: alert, oriented X3, CN II-XII intact Psychiatric exam: Present: normal affect, normal mood Skin exam: Present: warm, dry, intact, normal color. Absent: rash Course Vital Signs 02/04/19 02/04/19 02/04/19 17:45 19:25 23:21 Temperature 99.1 F 98.7 F Pulse Rate 76 72 Respiratory 22 18 16 Rate Blood Pressure 138/66 134/80 O2 Sat by Pulse 97 98 Oximetry Medical Decision Making - Medical Decision Making Patient is a 8-year-old female presenting with abdominal pain. Epigastric right upper quadrant nature. Other reviewed and unremarkable. Due to patient's pain and CT abdomen and pelvis completed. Evidence of ileus. No other inflammatory processes noted. Patient has had no significant vomiting while in emergency department. As this patient's family related to ulcer or gastritis. Discussed that putting Patient on antiemetiic and acid reductionmedication. Patient informed that she needs follow-up with GI specialty. She may need a scope. Patient understands treatment plan will comply. Return parameters were discussed. - Lab Data Result diagrams: 02/04/19 18:37 02/04/19 18:37 Lab Results 02/04/19 02/04/19 02/04/19 Range/Units 18:37 18:37 18:37 WBC 6.6 (3.8-10.6) k/uL RBC 4.04 (3.80-5.40) m/uL Hgb 14.1 (11.4-16.0) gm/dL Hct 41.7 (34.0-46.0) % MCV 103.1 H (80.0-100.0) fL MCH 34.8 (25.0-35.0) pg MCHC 33.7 (31.0-37.0) g/dL RDW 13.3 (11.5-15.5) % Plt Count 244 (150-450) k/uL Neutrophils % 56 % Lymphocytes % 35 % Monocytes % 4 % Eosinophils % 3 % Basophils % 0 % Neutrophils # 3.7 (1.3-7.7) k/uL Lymphocytes # 2.3 (1.0-4.8) k/uL Monocytes # 0.2 (0-1.0) k/uL Eosinophils # 0.2 (0-0.7) k/uL Basophils # 0.0 (0-0.2) k/uL Macrocytosis Slight PT 46.1 H (9.0-12.0) sec INR 4.8 H (<1.2) APTT 55.1 H (22.0-30.0) sec Sodium 140 (137-145) mmol/L Potassium 4.1 (3.5-5.1) mmol/L Chloride 107 (98-107) mmol/L Carbon Dioxide 28 (22-30) mmol/L Anion Gap 5 mmol/L BUN 16 (7-17) mg/dL Creatinine 0.74 (0.52-1.04) mg/dL Est GFR (CKD-EPI)AfAm >90 (>60 ml/min/1.73 sqM) Est GFR (CKD-EPI)NonAf >90 (>60 ml/min/1.73 sqM) Glucose 102 H (74-99) mg/dL Calcium 8.8 (8.4-10.2) mg/dL Total Bilirubin 0.3 (0.2-1.3) mg/dL AST 21 (14-36) U/L ALT 24 (9-52) U/L Alkaline Phosphatase 76 (38-126) U/L Troponin I (0.000-0.034) ng/mL Total Protein 6.3 (6.3-8.2) g/dL Albumin 3.6 (3.5-5.0) g/dL Amylase 54 (30-110) U/L Lipase 70 (23-300) U/L Urine Color Urine Appearance (Clear) Urine pH (5.0-8.0) Ur Specific [employer] (1.001-1.035) Urine Protein (Negative) Urine Glucose (UA) (Negative) Urine Ketones (Negative) Urine Blood (Negative) Urine Nitrite (Negative) Urine Bilirubin (Negative) Urine Urobilinogen (<2.0) mg/dL Ur Leukocyte Esterase (Negative) 02/04/19 02/04/19 Range/Units 18:37 20:00 WBC (3.8-10.6) k/uL RBC (3.80-5.40) m/uL Hgb (11.4-16.0) gm/dL Hct (34.0-46.0) % MCV (80.0-100.0) fL MCH (25.0-35.0) pg MCHC (31.0-37.0) g/dL RDW (11.5-15.5) % Plt Count (150-450) k/uL Neutrophils % % Lymphocytes % % Monocytes % % Eosinophils % % Basophils % % Neutrophils # (1.3-7.7) k/uL Lymphocytes # (1.0-4.8) k/uL Monocytes # (0-1.0) k/uL Eosinophils # (0-0.7) k/uL Basophils # (0-0.2) k/uL Macrocytosis PT (9.0-12.0) sec INR (<1.2) APTT (22.0-30.0) sec Sodium (137-145) mmol/L Potassium (3.5-5.1) mmol/L Chloride (98-107) mmol/L Carbon Dioxide (22-30) mmol/L Anion Gap mmol/L BUN (7-17) mg/dL Creatinine (0.52-1.04) mg/dL Est GFR (CKD-EPI)AfAm (>60 ml/min/1.73 sqM) Est GFR (CKD-EPI)NonAf (>60 ml/min/1.73 sqM) Glucose (74-99) mg/dL Calcium (8.4-10.2) mg/dL Total Bilirubin (0.2-1.3) mg/dL AST (14-36) U/L ALT (9-52) U/L Alkaline Phosphatase (38-126) U/L Troponin I <0.012 (0.000-0.034) ng/mL Total Protein (6.3-8.2) g/dL Albumin (3.5-5.0) g/dL Amylase (30-110) U/L Lipase (23-300) U/L Urine Color Yellow Urine Appearance Clear (Clear) Urine pH 7.5 (5.0-8.0) Ur Specific [employer] 1.011 (1.001-1.035) Urine Protein Negative (Negative) Urine Glucose (UA) Negative (Negative) Urine Ketones Negative (Negative) Urine Blood Negative (Negative) Urine Nitrite Negative (Negative) Urine Bilirubin Negative (Negative) Urine Urobilinogen <2.0 (<2.0) mg/dL Ur Leukocyte Esterase Negative (Negative) 02/04/19 18:45 EKG shows normal sinus rhythm normally daily. Ventricular rate 16 beats were minute period. Was 150 ms. QRS duration is 94 ms QT QTc is 422/452 ms. No evidence of ST elevation. - Radiology Data Radiology results: report reviewed Dimer 2 kg is without diverticulitis. Mildly dilated proximal small bowel distal just with ileus. Old exam. Disposition Clinical Impression: Ileus, Abdominal pain Disposition: HOME SELF-CARE Condition: Good Instructions (If sedation given, give patient instructions): Gastritis (ED), Abdominal Pain (ED) Additional Instructions: Patient has a follow-up with GI specialty. Return to the emergency department if any alarming signs or symptoms occur. Prescriptions: Famotidine [Pepcid] 20 mg PO BID #12 tablet Ondansetron Odt [Zofran Odt] 4 mg PO Q8HR PRN #12 tab PRN Reason: Nausea Ondansetron [Zofran ODT] 4 mg PO Q12HR #20 tab Is patient prescribed a controlled substance at d/c from ED?: No Referrals: Darby Pittman DO [Primary Care Provider] - 1-2 days Katarina Bullock MD [STAFF PHYSICIAN] - 1-2 days Time of Disposition: 22:23
[2019-02-04 18:53] LABS: Basophils % (A) 0 %; Eosinophils # (A) 0.2 k/uL (0-0.7); Eosinophils % (A) 3 %; HCT 41.7 % (34.0-46.0); HGB 14.1 gm/dL (11.4-16.0); Lymphocytes # (A) 2.3 k/uL (1.0-4.8); Lymphocytes % (A) 35 %; MCH 34.8 pg (25.0-35.0); MCHC 33.7 g/dL (31.0-37.0); MCV 103.1 fL (80.0-100.0); Macrocytosis Slight; Mean Platelet Volume 6.9; Monocytes # (A) 0.2 k/uL (0-1.0); Monocytes % (A) 4 %; Neutrophils # (A) 3.7 k/uL (1.3-7.7); Neutrophils % (A) 56 %; Platelet Count 244 k/uL (150-450); RBC 4.04 m/uL (3.80-5.40); RDW 13.3 % (11.5-15.5); WBC 6.6 k/uL (3.8-10.6)
[2019-02-04 19:01] LABS: ALT 24 U/L (9-52); AST 21 U/L (14-36); African American GFR (CKD) >90 (>60 ml/min/1.73 sqM); Albumin 3.6 g/dL (3.5-5.0); Alkaline Phosphatase 76 U/L (38-126); Amylase 54 U/L (30-110); Anion Gap 5 mmol/L; Blood Urea Nitrogen 16 mg/dL (7-17); Calcium 8.8 mg/dL (8.4-10.2); Carbon Dioxide 28 mmol/L (22-30); Chloride 107 mmol/L (98-107); Glucose 102 mg/dL (74-99); Lipase 70 U/L (23-300); Potassium 4.1 mmol/L (3.5-5.1); Sodium 140 mmol/L (137-145); Total Bilirubin 0.3 mg/dL (0.2-1.3); Total Protein 6.3 g/dL (6.3-8.2)
[2019-02-04 19:02] LABS: INR 4.8 (<1.2); Partial Thromboplastin Time 55.1 sec (22.0-30.0); Prothrombin Time 46.1 sec (9.0-12.0)
--- NOTE | 2019-02-04 19:53 | XR ---
EXAMINATION TYPE: XR chest 2V DATE OF EXAM: 02/04/2019 COMPARISON: 01/14/2017 HISTORY: Chest pain TECHNIQUE: Frontal and lateral views of the chest are obtained. FINDINGS: Heart and mediastinum are normal. Lungs are clear. Diaphragm is normal. Bony thorax appear s normal. IMPRESSION: Normal chest. No change.
--- NOTE | 2019-02-04 19:55 | XR ---
EXAMINATION TYPE: XR KUB DATE OF EXAM: 02/04/2019 COMPARISON: 01/16/2017 HISTORY: Abdominal pain TECHNIQUE: 2 views upright FINDINGS: There is no sign of intestinal obstruction or pneumoperitoneum. Fecal pattern is normal. Th ere are clips from cholecystectomy. There is inferior vena cava filter. Lung bases are clear. IMPRESSION: Nonacute abdomen. No change.
[2019-02-04 20:13] LABS: Appearance,Urine Clear (Clear); Bilirubin,Urine Negative (Negative); Blood,Urine Negative (Negative); Color,Urine Yellow; Glucose,Urine (UA) Negative (Negative); Ketones,Urine Negative (Negative); Leukocyte Esterase,Urine Negative (Negative); Nitrite,Urine Negative (Negative); PH, Urine 7.5 (5.0-8.0); Protein,Urine Negative (Negative); Specific Gravity,Urine 1.011 (1.001-1.035); Urobilinogen,Urine <2.0 mg/dL (<2.0)
--- NOTE | 2019-02-04 21:40 | CT ---
EXAMINATION TYPE: CT abdomen pelvis w con DATE OF EXAM: 02/04/2019 COMPARISON: 01/16/2017 HISTORY: abdominal pain CT DLP: 1798.6 mGycm Automated exposure control for dose reduction was used. TECHNIQUE: Helical acquisition of images was performed from the lung bases through the pelvis. CONTRAST: Performed without Oral Contrast and with IV Contrast, patient injected with 100 mL of Isovue 300. FINDINGS: Lung bases are clear. There is no pleural effusion. Heart size is normal. There is no pericardial eff usion. Liver spleen stomach pancreas appear normal. Bile ducts are not dilated. There are clips from cholecystectomy. There is no adrenal mass. Kidneys show satisfactory contrast opacification. There is no hydronephrosi s. Ureters are not dilated. Bladder distends smoothly. There is no inguinal hernia. There is no free fluid in the pelvis. Appendix is not seen. There is no sign of thickened appendix. There is inferior vena cava filter. The re is no retroperitoneal adenopathy. There is mildly dilated small bowel in the left upper quadrant up to 3.3 cm. Distal small bowel is no t dilated. There are multiple diverticula in the large bowel. There is no sign of diverticulitis. The re are spondylotic changes in the lumbar spine. I see no bony destructive process. Bony pelvis appear s intact. There is spurring of the acetabula. There are postsurgical changes on the anterior abdomina l wall with apparent broad-based ventral hernia. IMPRESSION: THERE IS COLONIC DIVERTICULOSIS WITHOUT DIVERTICULITIS. MILDLY DILATED PROXIMAL SMALL BOWEL SUGGESTIVE OF ILEUS. This appears new compared to old exam. There is clearing of mild atelectasis at the lung bases compared to old exam.
[2019-02-04] MEDS ORDERED: MORPHINE SULFATE 4 MG/ML SYRINGE IVP STA (22:24)
[2019-02-04] MEDS ORDERED: MAG HYDROX/AL HYDROX/SIMETH 30 ML, HYOSCYAMINE ELIXIR 10 ML, CIMETIDINE HCL 300 MG, LID... PO STA ×4 (22:25)
[2019-02-04 23:21] VITALS: BP 134/80; PULSE 72; RESP 16; TEMP 98.7
== END 2019-02-04 23:30 | disposition home or self-care (01) ==
LOC: EC 17:42
DX: K56.7 Ileus, unspecified (principal); R07.9 Chest pain, unspecified; M79.7 Fibromyalgia; E07.9 Disorder of thyroid, unspecified; G89.29 Other chronic pain; F17.200 Nicotine dependence, unspecified, uncomplicated; Z88.0 Allergy status to penicillin; Z88.8 Allergy status to other drugs, medicaments and biological substances; Z79.1 Long term (current) use of non-steroidal anti-inflammatories (NSAID); Z79.01 Long term (current) use of anticoagulants; Z79.82 Long term (current) use of aspirin; Z79.84 Long term (current) use of oral hypoglycemic drugs; Z79.890 Hormone replacement therapy; Z79.899 Other long term (current) drug therapy; Z90.49 Acquired absence of other specified parts of digestive tract; Z98.1 Arthrodesis status
CPT/HCPCS: 36415; 93005; 80053; 82150; 83690; 84484; 85025; 85610; 85730; 81003; 87086; 71046; 74018; 74177; 99285; 96374; 96375 ×3; 96361 ×3; J2270; J2405; J1170; C9113; Q9967

== ENCOUNTER 2021-04-30 13:53 | Inpatient (IN) | payer OTHER ==
[2021-04-30] MEDS ORDERED: MORPHINE SULFATE 4 MG/ML SYRINGE IVP STA (14:29)
[2021-04-30 15:20] LABS: Basophils % (A) 0 %; Eosinophils # (A) 0.1 k/uL (0-0.7); Eosinophils % (A) 1 %; HCT 22.8 % (34.0-46.0); HGB 8.1 gm/dL (11.4-16.0); Lymphocytes # (A) 2.2 k/uL (1.0-4.8); Lymphocytes % (A) 31 %; MCH 35.4 pg (25.0-35.0); MCHC 35.6 g/dL (31.0-37.0); MCV 99.5 fL (80.0-100.0); Mean Platelet Volume 8.9; Monocytes # (A) 0.3 k/uL (0-1.0); Monocytes % (A) 4 %; Neutrophils # (A) 4.3 k/uL (1.3-7.7); Neutrophils % (A) 63 %; Platelet Count 202 k/uL (150-450); RBC 2.29 m/uL (3.80-5.40); RDW 13.6 % (11.5-15.5); WBC 6.9 k/uL (3.8-10.6)
[2021-04-30 15:45] LABS: Prothrombin Time 99.5 sec (9.0-12.0)
[2021-04-30 15:46] LABS: INR >10.0 (<1.2)
[2021-04-30 15:47] LABS: Albumin 2.8 g/dL (3.5-5.0); Calcium 8.4 mg/dL (8.4-10.2); Total Bilirubin 0.5 mg/dL (0.2-1.3); Total Protein 5.2 g/dL (6.3-8.2)
[2021-04-30] MEDS ORDERED: PHYTONADIONE 2 MG in SODIUM CHLORIDE 0.9% 50 ML IVPB STA (16:02)
[2021-04-30] MEDS ORDERED: NALOXONE 0.4 MG/ML 1 ML VIAL IV PRN (16:24)
--- NOTE | 2021-04-30 16:24 | ED ---
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 She denies having any trauma. States that she does have some bruising on the Coumadin however had nothing this extensive before. Also reports that she's been having bruising on the upper extremities. She admits that she started taking Adipex a month ago. He is attempting to lose weight to have knee surgery. States that it has curbed her appetite tremendously. She denies any other medication changes. No fevers or chills. Denies chest pain or shortness of breath. Denies any headaches or visual changes. No recent trauma. Does admit to back pain however this is her chronic back pain for which she takes Percocet at home. No alleviating, precipitating or modifying factors - Related Data Home Medications Medication Instructions Recorded Confirmed Aspirin EC [Ecotrin Low Dose] 81 mg PO DAILY 01/14/17 04/30/21 Calcium Carbonate/Vitamin D3 1 tab PO BID 01/14/17 04/30/21 [Calcium 600-Vit D3 400 Caplet] Diclofenac Sodium [Voltaren] 75 mg PO BID 01/14/17 04/30/21 Furosemide [Lasix] 40 mg PO DAILY 01/14/17 04/30/21 Levothyroxine Sodium [Synthroid] 100 mcg PO DAILY 01/14/17 04/30/21 Multivitamins, Thera [Multivitamin 1 tab PO HS 01/14/17 04/30/21 (formulary)] Pramipexole [Mirapex] 0.5 mg PO HS 01/14/17 04/30/21 QUEtiapine [SEROquel] 200 mg PO HS 01/14/17 04/30/21 oxyCODONE-APAP 10-325MG [Percocet 1 tab PO QID 01/14/17 04/30/21 10-325 mg] Loratadine [Claritin] 10 mg PO HS 02/04/19 04/30/21 Prochlorperazine [Compazine] 5 mg PO Q12H PRN 02/04/19 04/30/21 Warfarin [Coumadin] 10 mg PO DIRECTED 02/04/19 04/30/21 Warfarin [Coumadin] 12.5 mg PO DIRECTED 02/04/19 04/30/21 metFORMIN HCL [Glucophage] 500 mg PO BID 02/04/19 04/30/21 Gabapentin 1,200 mg PO TID 04/30/21 04/30/21 Neuriva Plus Supplement 1 tab PO HS 04/30/21 04/30/21 Orphenadrine Citrate [Orphenadrine 100 mg PO BID 04/30/21 04/30/21 Citrate ER] Allergies Allergy/AdvReac Type Severity Reaction Status Date / Time Penicillins Allergy Unknown Verified 04/30/21 16:46 rosuvastatin [From Crestor] Allergy Unknown Verified 04/30/21 16:46 [id number]-[id number]-Gku Reductase Allergy Unknown Verified 04/30/21 16:46 Inhibitor Review of Systems ROS Statement: Those systems with pertinent positive or pertinent negative responses have been documented in the HPI. ROS Other: All systems not noted in ROS Statement are negative. Past Medical History Past Medical History: Fibromyalgia, Pulmonary Embolus (PE), Thyroid Disorder Additional Past Medical History / Comment(s): insomnia, chronic back pain d/t DDD, hip, and knee pain. EDS, chiari malformation. History of Any Multi-Drug Resistant Organisms: None Reported Past Surgical History: Appendectomy, Section, Cholecystectomy, Hernia Repair, Hysterectomy, Orthopedic Surgery Additional Past Surgical History / Comment(s): C6-C7 Fusion of the neck, green field filter- which is fractured Past Anesthesia/Blood Transfusion Reactions: No Reported Reaction Past Psychological History: No Psychological Hx Reported Smoking Status: Former smoker Past Alcohol Use History: None Reported Past Drug Use History: None Reported - Past Family History Mother Family Medical History: Cancer Additional Family Medical History / Comment(s): Breast cancer Father Family Medical History: Cancer General Exam Limitations: no limitations General appearance: alert, in no apparent distress Head exam: Present: atraumatic, normocephalic, normal inspection Eye exam: Present: normal appearance, PERRL, EOMI. Absent: scleral icterus, conjunctival injection, periorbital swelling ENT exam: Present: normal exam, mucous membranes moist Neck exam: Present: normal inspection. Absent: tenderness, meningismus, lymphadenopathy Respiratory exam: Present: normal lung sounds bilaterally. Absent: respiratory distress, wheezes, rales, rhonchi, stridor Cardiovascular Exam: Present: regular rate, normal rhythm, normal heart sounds. Absent: systolic murmur, diastolic murmur, rubs, gallop, clicks GI/Abdominal exam: Present: soft, normal bowel sounds. Absent: distended, tenderness, guarding, rebound, rigid Extremities exam: Present: full ROM, tenderness (left medial thigh - large hematoma measuring greater than 30 cm in biggest demension. ), normal capillary refill. Absent: pedal edema, joint swelling, calf tenderness Back exam: Present: normal inspection Neurological exam: Present: alert, oriented X3, CN II-XII intact Psychiatric exam: Present: normal affect, normal mood Skin exam: Present: warm, dry, intact, normal color. Absent: rash Course Vital Signs 04/30/21 04/30/21 04/30/21 14:12 16:20 17:01 Temperature 99.3 F 99.1 F 99.5 F Pulse Rate 83 88 Pulse Rate [ 84 Pulse Oximetery ] Respiratory 16 16 18 Rate Blood Pressure 102/52 105/90 Blood Pressure 105/68 [Right Arm] O2 Sat by Pulse 98 98 95 Oximetry 04/30/21 04/30/21 04/30/21 17:13 18:17 20:22 Temperature 98.8 F 98.2 F Pulse Rate 79 80 82 Pulse Rate [ Pulse Oximetery ] Respiratory 16 16 18 Rate Blood Pressure 98/70 108/51 112/73 Blood Pressure [Right Arm] O2 Sat by Pulse 95 97 97 Oximetry 04/30/21 22:31 Temperature 99.6 F Pulse Rate 84 Pulse Rate [ Pulse Oximetery ] Respiratory 18 Rate Blood Pressure 97/60 Blood Pressure [Right Arm] O2 Sat by Pulse 99 Oximetry Medical Decision Making - Medical Decision Making On arrival patient is placed in room 9. A thorough history and physical exam was performed. IV is established laboratory studies were conducted. She is requesting 70 for pain control and therefore I did give her 4 mg of morphine. Laboratory studies are reviewed. INR is greater than 10. Hemoglobin is 8. Previous hemoglobin in 2019 was 14.1. The patient is given 2 mg of vitamin K IV. Did recommend admission in order to trend her hemoglobin and lower her INR. I did call and speak with Dr. López who accepted the patient. He is requesting a lower extremity CT and orthopedic consult which I did place. Patient is informed of the diagnosis, differential and treatment options. She is willing to stay hospitalized. Bridging orders are placed and she is awaiting a bed on the floor. - Lab Data Result diagrams: 05/03/21 05:48 05/03/21 10:31 Lab Results 04/30/21 04/30/21 04/30/21 Range/Units 15:05 15:05 15:05 WBC 6.9 (3.8-10.6) k/uL RBC 2.29 L (3.80-5.40) m/uL Hgb 8.1 L (11.4-16.0) gm/dL Hct 22.8 L (34.0-46.0) % MCV 99.5 (80.0-100.0) fL MCH 35.4 H (25.0-35.0) pg MCHC 35.6 (31.0-37.0) g/dL RDW 13.6 (11.5-15.5) % Plt Count 202 (150-450) k/uL MPV 8.9 Neutrophils % 63 % Lymphocytes % 31 % Monocytes % 4 % Eosinophils % 1 % Basophils % 0 % Neutrophils # 4.3 (1.3-7.7) k/uL Lymphocytes # 2.2 (1.0-4.8) k/uL Monocytes # 0.3 (0-1.0) k/uL Eosinophils # 0.1 (0-0.7) k/uL Basophils # 0.0 (0-0.2) k/uL PT 99.5 H (9.0-12.0) sec INR >10.0 H* (<1.2) APTT 87.0 H (22.0-30.0) sec Sodium 133 L (137-145) mmol/L Potassium 4.0 (3.5-5.1) mmol/L Chloride 103 (98-107) mmol/L Carbon Dioxide 25 (22-30) mmol/L Anion Gap 5 mmol/L BUN 18 H (7-17) mg/dL Creatinine 0.94 (0.52-1.04) mg/dL Est GFR (CKD-EPI)AfAm 77 (>60 ml/min/1.73 sqM) Est GFR (CKD-EPI)NonAf 67 (>60 ml/min/1.73 sqM) Glucose 105 H (74-99) mg/dL Plasma Lactic Acid Roc (0.7-2.0) mmol/L Calcium 8.4 (8.4-10.2) mg/dL Total Bilirubin 0.5 (0.2-1.3) mg/dL AST 28 (14-36) U/L ALT 12 (4-34) U/L Alkaline Phosphatase 76 (38-126) U/L Creatine Kinase 99 (30-135) U/L Troponin I (0.000-0.034) ng/mL Total Protein 5.2 L (6.3-8.2) g/dL Albumin 2.8 L (3.5-5.0) g/dL 04/30/21 04/30/21 Range/Units 15:05 15:05 WBC (3.8-10.6) k/uL RBC (3.80-5.40) m/uL Hgb (11.4-16.0) gm/dL Hct (34.0-46.0) % MCV (80.0-100.0) fL MCH (25.0-35.0) pg MCHC (31.0-37.0) g/dL RDW (11.5-15.5) % Plt Count (150-450) k/uL MPV Neutrophils % % Lymphocytes % % Monocytes % % Eosinophils % % Basophils % % Neutrophils # (1.3-7.7) k/uL Lymphocytes # (1.0-4.8) k/uL Monocytes # (0-1.0) k/uL Eosinophils # (0-0.7) k/uL Basophils # (0-0.2) k/uL PT (9.0-12.0) sec INR (<1.2) APTT (22.0-30.0) sec Sodium (137-145) mmol/L Potassium (3.5-5.1) mmol/L Chloride (98-107) mmol/L Carbon Dioxide (22-30) mmol/L Anion Gap mmol/L BUN (7-17) mg/dL Creatinine (0.52-1.04) mg/dL Est GFR (CKD-EPI)AfAm (>60 ml/min/1.73 sqM) Est GFR (CKD-EPI)NonAf (>60 ml/min/1.73 sqM) Glucose (74-99) mg/dL Plasma Lactic Acid Roc 1.1 (0.7-2.0) mmol/L Calcium (8.4-10.2) mg/dL Total Bilirubin (0.2-1.3) mg/dL AST (14-36) U/L ALT (4-34) U/L Alkaline Phosphatase (38-126) U/L Creatine Kinase (30-135) U/L Troponin I <0.012 (0.000-0.034) ng/mL Total Protein (6.3-8.2) g/dL Albumin (3.5-5.0) g/dL - EKG Data EKG Comments: EKG demonstrates normal sinus rhythm with a ventricular rate of 83. WA interval 130. QRS is 96. QTC of 460. No acute ST segment elevations or depressions Disposition Clinical Impression: Hematoma, Acute blood loss anemia, Supratherapeutic INR Disposition: ADMITTED IP TO THIS [facility] Condition: Serious Is patient prescribed a controlled substance at d/c from ED?: No Decision to Admit Reason: Admit from EC Decision Date: 04/30/21 Decision Time: 16:24
--- NOTE | 2021-04-30 17:53 | P.HPIM ---
History of Present Illness H&P Date: 04/30/21 This is a 60-year-old female with past medical history noted below significant for history of pulmonary emboli on anticoagulation with Coumadin that presented to the emergency room with worsening left thigh pain and bruising. Patient said that yesterday she woke up with some discomfort in the medial aspect of her left thigh and noted a small bruising that she did not make so much of it and today noted the bruising was more extensive and a lot more painful so she decided to come to the emergency room for further evaluation. In the ER, INR was greater than 10. Patient was noted to have evidence of left thigh hematoma. She denies any trauma or fall. Patient's report taking her Coumadin as prescribed. She did not get any no prescription or antibiotic recently. Her left foot is warm and she has a palpable dorsalis pedis pulse. She does have good sensation all over left lower extremity Review of Systems Review of system: 14 points review of systems were obtained and were negative except to what were mentioned in the HPI. Past Medical History Past Medical History: Fibromyalgia, Pulmonary Embolus (PE), Thyroid Disorder Additional Past Medical History / Comment(s): insomnia, chronic back pain d/t DDD, hip, and knee pain. EDS, chiari malformation. History of Any Multi-Drug Resistant Organisms: None Reported Past Surgical History: Appendectomy, Section, Cholecystectomy, Hernia Repair, Hysterectomy, Orthopedic Surgery Additional Past Surgical History / Comment(s): C6-C7 Fusion of the neck, green field filter- which is fractured Past Anesthesia/Blood Transfusion Reactions: No Reported Reaction Past Psychological History: No Psychological Hx Reported Smoking Status: Former smoker Past Alcohol Use History: None Reported Past Drug Use History: None Reported Medications and Allergies Home Medications Medication Instructions Recorded Confirmed Type Aspirin EC [Ecotrin Low Dose] 81 mg PO DAILY 01/14/17 04/30/21 History Calcium Carbonate/Vitamin D3 1 tab PO BID 01/14/17 04/30/21 History [Calcium 600-Vit D3 400 Caplet] Diclofenac Sodium [Voltaren] 75 mg PO BID 01/14/17 04/30/21 History Furosemide [Lasix] 40 mg PO DAILY 01/14/17 04/30/21 History Levothyroxine Sodium [Synthroid] 100 mcg PO DAILY 01/14/17 04/30/21 History Multivitamins, Thera [Multivitamin 1 tab PO HS 01/14/17 04/30/21 History (formulary)] Pramipexole [Mirapex] 0.5 mg PO HS 01/14/17 04/30/21 History QUEtiapine [SEROquel] 200 mg PO HS 01/14/17 04/30/21 History oxyCODONE-APAP 10-325MG [Percocet 1 tab PO QID 01/14/17 04/30/21 History 10-325 mg] Loratadine [Claritin] 10 mg PO HS 02/04/19 04/30/21 History Prochlorperazine [Compazine] 5 mg PO Q12H PRN 02/04/19 04/30/21 History Warfarin [Coumadin] 10 mg PO DIRECTED 02/04/19 04/30/21 History Warfarin [Coumadin] 12.5 mg PO DIRECTED 02/04/19 04/30/21 History metFORMIN HCL [Glucophage] 500 mg PO BID 02/04/19 04/30/21 History Gabapentin 1,200 mg PO TID 04/30/21 04/30/21 History Neuriva Plus Supplement 1 tab PO HS 04/30/21 04/30/21 History Orphenadrine Citrate [Orphenadrine 100 mg PO BID 04/30/21 04/30/21 History Citrate ER] Allergies Allergy/AdvReac Type Severity Reaction Status Date / Time Penicillins Allergy Unknown Verified 04/30/21 16:46 rosuvastatin [From Crestor] Allergy Unknown Verified 04/30/21 16:46 Afteonc-Xxv-Afe Reductase Allergy Unknown Verified 04/30/21 16:46 Inhibitor Physical Exam Vitals: Vital Signs Temp Pulse Resp BP Pulse Ox 04/30/21 17:13 79 16 98/70 95 04/30/21 16:20 99.1 F 88 16 105/90 98 04/30/21 14:12 99.3 F 83 16 102/52 98 Intake and Output 04/30/21 04/30/21 04/30/21 06:59 14:59 22:59 Other: Weight 112.491 kg General: The patient is awake and alert, in no distress Eye: there is normal conjunctiva bilaterally. Neck: The neck is supple, there is no JVD. Cardiovascular: Normal S1-S2, no S3-S4, no murmurs. Respiratory: Lungs clear to auscultation bilaterally Gastrointestinal: Abdomen is soft, nontender Musculoskeletal: There is no pedal edema. There is a large 15 x 10 cm bruising with underlying hematoma noted on the medial aspect of the left thigh. Area is tender to touch and is warm. Neurological:. Speech is normal. Skin: Skin is warm and dry Results CBC & Chem 7: 04/30/21 15:05 04/30/21 15:05 Labs: Abnormal Lab Results - Last 24 Hours (Table) 04/30/21 04/30/21 04/30/21 Range/Units 15:05 15:05 15:05 RBC 2.29 L (3.80-5.40) m/uL Hgb 8.1 L (11.4-16.0) gm/dL Hct 22.8 L (34.0-46.0) % MCH 35.4 H (25.0-35.0) pg PT 99.5 H (9.0-12.0) sec INR >10.0 H* (<1.2) APTT 87.0 H (22.0-30.0) sec Sodium 133 L (137-145) mmol/L BUN 18 H (7-17) mg/dL Glucose 105 H (74-99) mg/dL Total Protein 5.2 L (6.3-8.2) g/dL Albumin 2.8 L (3.5-5.0) g/dL Assessment and Plan Assessment: 1. Spontaneous left thigh hematoma 2. Coagulopathy with supratherapeutic INR 3. Acute blood loss anemia 4. History of PE with prior IVC filter placement (per patient reports IVC filter is broken) 5. Chronic neck pain with prior C-spine fusion Today, I reviewed her medication list and lab work results. Patient received 10 mg of IV vitamin K as ordered by ER physician. I would order computed tomography scan of the left thigh for further evaluation of the hematoma. I would consult orthopedic surgery just in case of worsening hematoma or if evacuation is needed. We will continue supportive care otherwise. Hold home dose of aspirin and Coumadin for now. Intermittent icing. Repeat lab work in the morning. Transfuse as needed.
[2021-04-30] MEDS: oxyCODONE-APAP 10-325MG 1 EACH TAB PO SCH ×2 (18:12→21:47)
[2021-04-30] MEDS: GABAPENTIN 400 MG CAP PO SCH ×2 (18:12→21:47)
[2021-04-30] MEDS: MULTIVITAMINS, THERA 1 EACH TAB PO SCH (18:13)
[2021-04-30 18:29] LABS: Appearance,Urine Clear (Clear); Bilirubin,Urine Negative (Negative); Blood,Urine Negative (Negative); Color,Urine Yellow; Glucose,Urine (UA) Negative (Negative); Hyaline Casts,Urine 8 /lpf (0-2); Ketones,Urine Negative (Negative); Leukocyte Esterase,Urine Small (Negative); Mucus,Urine Rare /hpf; Nitrite,Urine Negative (Negative); PH, Urine 5.5 (5.0-8.0); Protein,Urine Trace (Negative); RBC,Urine 1 /hpf (0-5); Squamous Epithelial Cell,Urine 2 /hpf (0-4); Urobilinogen,Urine <2.0 mg/dL (<2.0); WBC,Urine 1 /hpf (0-5)
[2021-04-30 18:50] LABS: Specific Gravity,Urine >1.050 (1.001-1.035)
[2021-04-30 20:43] LABS: INR 4.8 (<1.2); Prothrombin Time 45.9 sec (9.0-12.0)
[2021-04-30] MEDS: CALCIUM CARB-VIT D 500 MG-5 MCG TAB PO SCH (21:46)
[2021-04-30] MEDS: LORATADINE 10 MG TAB PO SCH (21:46)
[2021-04-30] MEDS: CYCLOBENZAPRINE 10 MG TAB PO SCH ×2 (21:46→21:48)
[2021-04-30] MEDS: PRAMIPEXOLE 0.5 MG TAB PO SCH (22:26)
[2021-04-30] MEDS: QUEtiapine 200 MG TAB PO SCH (22:27)
--- NOTE | 2021-04-30 22:35 | CT ---
EXAMINATION TYPE: CT lower extremity LT w con DATE OF EXAM: 04/30/2021 COMPARISON: HISTORY: Bruising from upper posterior thigh to knee. No known injury. CT DLP: 1610.3 mGycm Automated exposure control for dose reduction was used. CONTRAST: Performed with IV Contrast, patient injected with 100 mL of Isovue 300. Images obtained from the mid ileum to the proximal tibia with IV contrast. Hip joint is intact. There is hypertrophic acetabular spurring. There is also spurring on the femoral head. The femur appears intact. Proximal tibia and fibula appear intact. There is some mild hypertro phic osteoarthritis at the knee joint. There is subcutaneous edema and extensive fat stranding anterior and posterior to the femur. There is high attenuation elongated mass in the medial muscles of the mid thigh consistent with hematoma. Thi s area measures 20 cm in length and up to 7 cm in diameter. I see no focal bone destruction. There is small knee joint effusion. IMPRESSION: There is large elongated hematoma within the medial musculature of the mid thigh. There is subcutaneo us edema around the thigh. There is small knee joint effusion. There is mild osteoarthritis in the kn ee joint. No fracture seen.
[2021-05-01] MEDS: LEVOTHYROXINE 100 MCG TAB PO SCH (07:08)
[2021-05-01 09:10] LABS: Prothrombin Time 19.8 sec (9.0-12.0)
[2021-05-01 09:12] LABS: Basophils % (A) 0 %; Eosinophils # (A) 0.1 k/uL (0-0.7); Eosinophils % (A) 2 %; HGB 7.1 gm/dL (11.4-16.0); Lymphocytes # (A) 1.5 k/uL (1.0-4.8); Lymphocytes % (A) 26 %; MCH 34.2 pg (25.0-35.0); MCV 100.6 fL (80.0-100.0); Macrocytosis Slight; Mean Platelet Volume 8.6; Monocytes # (A) 0.2 k/uL (0-1.0); Monocytes % (A) 4 %; Neutrophils # (A) 3.9 k/uL (1.3-7.7); Neutrophils % (A) 66 %; Platelet Count 226 k/uL (150-450); RBC 2.09 m/uL (3.80-5.40); RDW 14.5 % (11.5-15.5); WBC 5.9 k/uL (3.8-10.6)
[2021-05-01 09:17] LABS: Albumin 2.6 g/dL (3.5-5.0); Calcium 8.4 mg/dL (8.4-10.2); Potassium 3.9 mmol/L (3.5-5.1); Total Bilirubin 0.5 mg/dL (0.2-1.3); Total Protein 5.1 g/dL (6.3-8.2)
[2021-05-01] MEDS: CYCLOBENZAPRINE 10 MG TAB PO SCH ×2 (09:28→09:35)
[2021-05-01] MEDS: GABAPENTIN 400 MG CAP PO SCH ×3 (09:28→21:15)
[2021-05-01] MEDS: FUROSEMIDE 40 MG TAB PO SCH (09:29)
[2021-05-01] MEDS: oxyCODONE-APAP 10-325MG 1 EACH TAB PO SCH ×4 (09:29→21:14)
[2021-05-01] MEDS: CALCIUM CARB-VIT D 500 MG-5 MCG TAB PO SCH ×2 (09:29→21:15)
--- NOTE | 2021-05-01 11:00 | P.PN ---
Subjective Patient is feeling dizzy and tired today. Patient said she had dizzy when she stood up this morning. Objective - Vital Signs Vital signs: Vital Signs Temp 98.5 F 05/01/21 04:00 Pulse 83 05/01/21 04:00 Resp 18 05/01/21 04:00 BP 115/75 05/01/21 04:00 Pulse Ox 97 05/01/21 04:00 Intake & Output 04/30/21 05/01/21 05/01/21 18:59 06:59 18:59 Intake Total 0 Balance 0 Weight 112.491 kg 116 kg Intake: Oral 0 Other: Voiding Method Toilet # Voids 1 - Exam General: The patient is awake and alert, in no distress Eye: there is normal conjunctiva bilaterally. Neck: The neck is supple, there is no JVD. Cardiovascular: Normal S1-S2, no S3-S4, no murmurs. Respiratory: Lungs clear to auscultation bilaterally Gastrointestinal: Abdomen is soft, nontender Musculoskeletal: There is no pedal edema. There is a large area of bruising measuring approximately 10 x 15 cm on the medial aspect of the left thigh Neurological:. Speech is normal. Skin: Skin is warm and dry - Labs CBC & Chem 7: 05/01/21 08:00 05/01/21 08:01 Labs: Abnormal Lab Results - Last 24 Hours (Table) 04/30/21 04/30/21 04/30/21 Range/Units 15:05 15:05 15:05 RBC 2.29 L (3.80-5.40) m/uL Hgb 8.1 L (11.4-16.0) gm/dL Hct 22.8 L (34.0-46.0) % MCV (80.0-100.0) fL MCH 35.4 H (25.0-35.0) pg PT 99.5 H (9.0-12.0) sec INR >10.0 H* (<1.2) APTT 87.0 H (22.0-30.0) sec Sodium 133 L (137-145) mmol/L BUN 18 H (7-17) mg/dL Glucose 105 H (74-99) mg/dL Total Protein 5.2 L (6.3-8.2) g/dL Albumin 2.8 L (3.5-5.0) g/dL Ur Specific Wheeler (1.001-1.035) Urine Protein (Negative) Ur Leukocyte Esterase (Negative) Hyaline Casts (0-2) /lpf Urine Mucus (None) /hpf 04/30/21 04/30/21 05/01/21 Range/Units 16:34 20:19 08:00 RBC 2.09 L (3.80-5.40) m/uL Hgb 7.1 L (11.4-16.0) gm/dL Hct 21.0 L (34.0-46.0) % MCV 100.6 H (80.0-100.0) fL MCH (25.0-35.0) pg PT 45.9 H (9.0-12.0) sec INR 4.8 H (<1.2) APTT (22.0-30.0) sec Sodium (137-145) mmol/L BUN (7-17) mg/dL Glucose (74-99) mg/dL Total Protein (6.3-8.2) g/dL Albumin (3.5-5.0) g/dL Ur Specific Wheeler >1.050 H (1.001-1.035) Urine Protein Trace H (Negative) Ur Leukocyte Esterase Small H (Negative) Hyaline Casts 8 H (0-2) /lpf Urine Mucus Rare H (None) /hpf 05/01/21 05/01/21 Range/Units 08:01 08:01 RBC (3.80-5.40) m/uL Hgb (11.4-16.0) gm/dL Hct (34.0-46.0) % MCV (80.0-100.0) fL MCH (25.0-35.0) pg PT 19.8 H (9.0-12.0) sec INR 2.0 H (<1.2) APTT (22.0-30.0) sec Sodium 132 L (137-145) mmol/L BUN (7-17) mg/dL Glucose 106 H (74-99) mg/dL Total Protein 5.1 L (6.3-8.2) g/dL Albumin 2.6 L (3.5-5.0) g/dL Ur Specific Wheeler (1.001-1.035) Urine Protein (Negative) Ur Leukocyte Esterase (Negative) Hyaline Casts (0-2) /lpf Urine Mucus (None) /hpf Assessment and Plan Assessment: 1. Spontaneous left thigh hematoma 2. Coagulopathy with supratherapeutic INR on presentation status post vitamin K in the ER 3. Acute blood loss anemia 4. History of PE with prior IVC filter placement (per patient reports IVC filter is broken) 5. Chronic neck pain with prior C-spine fusion Today, I reviewed her medication list and lab work results. Computed tomography scan of the left thigh showed a 20 x 7 cm large hematoma. Continue intermittent icing. Continue to hold aspirin and Coumadin. Repeat INR this morning is 2.0. Check orthostatic blood pressure. Repeat CBC in the morning. Patient may require a unit of blood transfusion if remains symptomatic or if hemoglobin drops below 7
--- NOTE | 2021-05-01 12:46 | P.CNOR ---
History of Present Illness - [facility] Consult date: 05/01/21 Consult reason: other (left thigh hematoma) History of present illness: Patient is a pleasant 60-year-old female seen at bedside this morning in consultation for left thigh hematoma. She was admitted through the emergency department yesterday 04/30/2021 with worsening left thigh pain and bruising. Patient said that 2 days ago she woke up with some discomfort in the medial aspect of her left thigh and noted a small bruising that she did not make so much of it and yesterday noted the bruising was more extensive and a lot more painful so she decided to come to the emergency room for further evaluation. She is on anti-coagulation therapy Coumadin for history of pulmonary emboli. In the ER, INR was greater than 10. Patient was noted to have evidence of left thigh hematoma. She denies any trauma or fall. Patient's report taking her Coumadin as prescribed. She has no fever or chills. She denies numbness or tingling. She has no chest pain or shortness of breath. Review of Systems All systems: negative Constitutional: Denies chills, Denies fever Eyes: denies blurred vision, denies pain Ears, nose, mouth and throat: Denies headache, Denies sore throat Cardiovascular: Denies chest pain, Denies shortness of breath Respiratory: Denies cough Gastrointestinal: Denies abdominal pain, Denies diarrhea, Denies nausea, Denies vomiting Genitourinary: Denies dysuria, Denies hematuria Musculoskeletal: Denies myalgias Integumentary: Denies pruritus, Denies rash Neurological: Denies numbness, Denies weakness Psychiatric: Denies anxiety, Denies depression Endocrine: Denies fatigue, Denies weight change Past Medical History Past Medical History: Fibromyalgia, Pulmonary Embolus (PE), Thyroid Disorder Additional Past Medical History / Comment(s): insomnia, chronic back pain d/t DDD, hip, and knee pain. EDS, chiari malformation. History of Any Multi-Drug Resistant Organisms: None Reported Past Surgical History: Appendectomy, Section, Cholecystectomy, Hernia Repair, Hysterectomy, Orthopedic Surgery Additional Past Surgical History / Comment(s): C6-C7 Fusion of the neck, green field filter- which is fractured, decompression surgery. Past Anesthesia/Blood Transfusion Reactions: No Reported Reaction Past Psychological History: No Psychological Hx Reported Smoking Status: Former smoker Past Alcohol Use History: None Reported Past Drug Use History: None Reported - Past Family History Mother Family Medical History: Cancer Additional Family Medical History / Comment(s): Breast cancer Father Family Medical History: Cancer Medications and Allergies Home Medications Medication Instructions Recorded Confirmed Type Aspirin EC [Ecotrin Low Dose] 81 mg PO DAILY 01/14/17 04/30/21 History Calcium Carbonate/Vitamin D3 1 tab PO BID 01/14/17 04/30/21 History [Calcium 600-Vit D3 400 Caplet] Diclofenac Sodium [Voltaren] 75 mg PO BID 01/14/17 04/30/21 History Furosemide [Lasix] 40 mg PO DAILY 01/14/17 04/30/21 History Levothyroxine Sodium [Synthroid] 100 mcg PO DAILY 01/14/17 04/30/21 History Multivitamins, Thera [Multivitamin 1 tab PO HS 01/14/17 04/30/21 History (formulary)] Pramipexole [Mirapex] 0.5 mg PO HS 01/14/17 04/30/21 History QUEtiapine [SEROquel] 200 mg PO HS 01/14/17 04/30/21 History oxyCODONE-APAP 10-325MG [Percocet 1 tab PO QID 01/14/17 04/30/21 History 10-325 mg] Loratadine [Claritin] 10 mg PO HS 02/04/19 04/30/21 History Prochlorperazine [Compazine] 5 mg PO Q12H PRN 02/04/19 04/30/21 History Warfarin [Coumadin] 10 mg PO DIRECTED 02/04/19 04/30/21 History Warfarin [Coumadin] 12.5 mg PO DIRECTED 02/04/19 04/30/21 History metFORMIN HCL [Glucophage] 500 mg PO BID 02/04/19 04/30/21 History Gabapentin 1,200 mg PO TID 04/30/21 04/30/21 History Neuriva Plus Supplement 1 tab PO HS 04/30/21 04/30/21 History Orphenadrine Citrate [Orphenadrine 100 mg PO BID 04/30/21 04/30/21 History Citrate ER] Allergies Allergy/AdvReac Type Severity Reaction Status Date / Time Penicillins Allergy Unknown Verified 04/30/21 16:46 rosuvastatin [From Crestor] Allergy Unknown Verified 04/30/21 16:46 Rqbgart-Ntx-Tof Reductase Allergy Unknown Verified 04/30/21 16:46 Inhibitor Physical Examination Inspection of the left thigh and lower extremity shows large diffuse area of ecchymoses at the medial thigh. There is no deformity of the left lower extremity. The left thigh is warm to touch and slightly tender. No focal abscess or fluctuance is noted. The the hip and knee joints are benign with passive range of motion. There is a well-healed surgical wound at the left knee. There is no effusion. Calf is soft and nontender. Neurovascular status is intact with motor and sensation throughout the left lower extremity. 2+ dorsalis pedis pulse and less than 2 second capillary refill is present in Results CT of the left thigh shows large hematoma at the medial aspect of the thigh. There are no fractures seen. - Labs Labs: Abnormal Lab Results - Last 24 Hours (Table) 04/30/21 04/30/21 04/30/21 Range/Units 15:05 15:05 15:05 RBC 2.29 L (3.80-5.40) m/uL Hgb 8.1 L (11.4-16.0) gm/dL Hct 22.8 L (34.0-46.0) % MCV (80.0-100.0) fL MCH 35.4 H (25.0-35.0) pg PT 99.5 H (9.0-12.0) sec INR >10.0 H* (<1.2) APTT 87.0 H (22.0-30.0) sec Sodium 133 L (137-145) mmol/L BUN 18 H (7-17) mg/dL Glucose 105 H (74-99) mg/dL Total Protein 5.2 L (6.3-8.2) g/dL Albumin 2.8 L (3.5-5.0) g/dL Ur Specific [place] (1.001-1.035) Urine Protein (Negative) Ur Leukocyte Esterase (Negative) Hyaline Casts (0-2) /lpf Urine Mucus (None) /hpf 04/30/21 04/30/21 05/01/21 Range/Units 16:34 20:19 08:00 RBC 2.09 L (3.80-5.40) m/uL Hgb 7.1 L (11.4-16.0) gm/dL Hct 21.0 L (34.0-46.0) % MCV 100.6 H (80.0-100.0) fL MCH (25.0-35.0) pg PT 45.9 H (9.0-12.0) sec INR 4.8 H (<1.2) APTT (22.0-30.0) sec Sodium (137-145) mmol/L BUN (7-17) mg/dL Glucose (74-99) mg/dL Total Protein (6.3-8.2) g/dL Albumin (3.5-5.0) g/dL Ur Specific [place] >1.050 H (1.001-1.035) Urine Protein Trace H (Negative) Ur Leukocyte Esterase Small H (Negative) Hyaline Casts 8 H (0-2) /lpf Urine Mucus Rare H (None) /hpf 05/01/21 05/01/21 Range/Units 08:01 08:01 RBC (3.80-5.40) m/uL Hgb (11.4-16.0) gm/dL Hct (34.0-46.0) % MCV (80.0-100.0) fL MCH (25.0-35.0) pg PT 19.8 H (9.0-12.0) sec INR 2.0 H (<1.2) APTT (22.0-30.0) sec Sodium 132 L (137-145) mmol/L BUN (7-17) mg/dL Glucose 106 H (74-99) mg/dL Total Protein 5.1 L (6.3-8.2) g/dL Albumin 2.6 L (3.5-5.0) g/dL Ur Specific [place] (1.001-1.035) Urine Protein (Negative) Ur Leukocyte Esterase (Negative) Hyaline Casts (0-2) /lpf Urine Mucus (None) /hpf H & H 04/30/21 05/01/21 Range/Units 15:05 08:00 Hgb 8.1 L 7.1 L (11.4-16.0) gm/dL Hct 22.8 L 21.0 L (34.0-46.0) % Coagulation 04/30/21 04/30/21 05/01/21 Range/Units 15:05 20:19 08:01 INR >10.0 H* 4.8 H 2.0 H (<1.2) Result Diagrams: 05/01/21 08:00 05/01/21 08:01 Assessment and Plan (1) Hematoma Narrative/Plan: The patient has been reviewed with Dr. Buck. There are no plans for immediate surgical intervention. Recommend consult from vascular surgeon for possible further investigation and recommendations. The patient's INR is improved today. Recommend continued monitoring, elevation, mild compression and pain management. We'll continue to follow and make further recommendations as appropriate including possible MRI pending vascular surgery recommendations. Thank you Current Visit: Yes Status: Acute Code(s): T14.8XXA - OTHER INJURY OF UNSPECIFIED BODY REGION, INITIAL ENCOUNTER SNOMED Code(s): 280310372 Time with Patient: Less than 30
--- NOTE | 2021-05-01 14:52 | P.GSCN ---
History of Present Illness Consult date: 05/01/21 Reason for Consult: Left thigh hematoma Requesting physician: Roni Anderson History of present illness: This a 60-year-old female with a past medical history of fibromyalgia, chronic back pain, Chiari malformation, and pulmonary embolism on Coumadin who presented to the emergency department with complaints of left thigh pain along with significant bruising. Patient states she was diagnosed with pulmonary embolism in 2004 after a cervical fusion. She states that she had an IVC filter placed at that time. She again in 2017 was diagnosed with pulmonary embolism however was told that her IVC filter was displaced and not functioning therefore she was started on Coumadin for anticoagulation. The patient states yesterday she woke up and was having pain in her left thigh, she noticed some bruising. She denies any recent trauma, fall, or over exertion and activity. The pain progressively was getting worse including swelling and bruising therefore she presented to the emergency department for further evaluation. On admission her INR was greater than 10, she was treated with vitamin K. Her repeat INR today is 2.0. She underwent a CT of the left lower extremity that showed a large elongated hematoma within the medial musculature of the mid thigh. There is subcutaneous edema around the thigh. There is small knee joint effusion. There is mild osteoarthritis in the knee joint. No fracture seen. Orthopedic was consulted and seen patient, they've been consulted vascular surgery for further evaluation and management. The patient states she still having tenderness and pain in the left lower extremity, pain with walking. She denies any shortness of breath, chest pain, abdominal pain, nausea or vomiting. Review of Systems A 14 point review of systems was completed all pertinent positives and negatives as stated in the HPI Past Medical History Past Medical History: Fibromyalgia, Pulmonary Embolus (PE), Thyroid Disorder Additional Past Medical History / Comment(s): insomnia, chronic back pain d/t DDD, hip, and knee pain. EDS, chiari malformation. History of Any Multi-Drug Resistant Organisms: None Reported Past Surgical History: Appendectomy, Section, Cholecystectomy, Hernia Repair, Hysterectomy, Orthopedic Surgery Additional Past Surgical History / Comment(s): C6-C7 Fusion of the neck, green field filter- which is fractured, decompression surgery. Past Anesthesia/Blood Transfusion Reactions: No Reported Reaction Past Psychological History: No Psychological Hx Reported Smoking Status: Former smoker Past Alcohol Use History: None Reported Past Drug Use History: None Reported - Past Family History Mother Family Medical History: Cancer Additional Family Medical History / Comment(s): Breast cancer Father Family Medical History: Cancer Medications and Allergies Home Medications Medication Instructions Recorded Confirmed Type Aspirin EC [Ecotrin Low Dose] 81 mg PO DAILY 01/14/17 04/30/21 History Calcium Carbonate/Vitamin D3 1 tab PO BID 01/14/17 04/30/21 History [Calcium 600-Vit D3 400 Caplet] Diclofenac Sodium [Voltaren] 75 mg PO BID 01/14/17 04/30/21 History Furosemide [Lasix] 40 mg PO DAILY 01/14/17 04/30/21 History Levothyroxine Sodium [Synthroid] 100 mcg PO DAILY 01/14/17 04/30/21 History Multivitamins, Thera [Multivitamin 1 tab PO HS 01/14/17 04/30/21 History (formulary)] Pramipexole [Mirapex] 0.5 mg PO HS 01/14/17 04/30/21 History QUEtiapine [SEROquel] 200 mg PO HS 01/14/17 04/30/21 History oxyCODONE-APAP 10-325MG [Percocet 1 tab PO QID 01/14/17 04/30/21 History 10-325 mg] Loratadine [Claritin] 10 mg PO HS 02/04/19 04/30/21 History Prochlorperazine [Compazine] 5 mg PO Q12H PRN 02/04/19 04/30/21 History Warfarin [Coumadin] 10 mg PO DIRECTED 02/04/19 04/30/21 History Warfarin [Coumadin] 12.5 mg PO DIRECTED 02/04/19 04/30/21 History metFORMIN HCL [Glucophage] 500 mg PO BID 02/04/19 04/30/21 History Gabapentin 1,200 mg PO TID 04/30/21 04/30/21 History Neuriva Plus Supplement 1 tab PO HS 04/30/21 04/30/21 History Orphenadrine Citrate [Orphenadrine 100 mg PO BID 04/30/21 04/30/21 History Citrate ER] Allergies Allergy/AdvReac Type Severity Reaction Status Date / Time Penicillins Allergy Unknown Verified 04/30/21 16:46 rosuvastatin [From Crestor] Allergy Unknown Verified 04/30/21 16:46 Fhneqhv-Kaw-Bip Reductase Allergy Unknown Verified 04/30/21 16:46 Inhibitor Surgical - Exam Vital Signs Temp Pulse Resp BP Pulse Ox 99.3 F 83 16 102/52 98 04/30/21 14:12 04/30/21 14:12 04/30/21 14:12 04/30/21 14:12 04/30/21 14:12 General appearance: The patient is alert, oriented, in no acute distress. Obese. HET: Head is normocephalic and atraumatic. Neck: Supple without lymphadenopathy. Trachea midline. Heart: S1 S2. Regular rate and rhythm. Lungs: Clear to auscultation. Abdomen: Soft, nontender, nondistended. Extremities: Left lower extremity with ecchymosis along the posterior and medial aspect of thigh along with swelling and tenderness to palpation. Palpable bilateral femoral and pedal pulses. Good capillary refill. Neurological: No focal deficits. Strength and sensation are grossly intact. Results - Labs 05/01/21 08:00 05/01/21 08:01 Abnormal Lab Results - Last 24 Hours (Table) 04/30/21 04/30/21 04/30/21 Range/Units 15:05 15:05 15:05 RBC 2.29 L (3.80-5.40) m/uL Hgb 8.1 L (11.4-16.0) gm/dL Hct 22.8 L (34.0-46.0) % MCV (80.0-100.0) fL MCH 35.4 H (25.0-35.0) pg PT 99.5 H (9.0-12.0) sec INR >10.0 H* (<1.2) APTT 87.0 H (22.0-30.0) sec Sodium 133 L (137-145) mmol/L BUN 18 H (7-17) mg/dL Glucose 105 H (74-99) mg/dL Total Protein 5.2 L (6.3-8.2) g/dL Albumin 2.8 L (3.5-5.0) g/dL Ur Specific [place] (1.001-1.035) Urine Protein (Negative) Ur Leukocyte Esterase (Negative) Hyaline Casts (0-2) /lpf Urine Mucus (None) /hpf 04/30/21 04/30/21 05/01/21 Range/Units 16:34 20:19 08:00 RBC 2.09 L (3.80-5.40) m/uL Hgb 7.1 L (11.4-16.0) gm/dL Hct 21.0 L (34.0-46.0) % MCV 100.6 H (80.0-100.0) fL MCH (25.0-35.0) pg PT 45.9 H (9.0-12.0) sec INR 4.8 H (<1.2) APTT (22.0-30.0) sec Sodium (137-145) mmol/L BUN (7-17) mg/dL Glucose (74-99) mg/dL Total Protein (6.3-8.2) g/dL Albumin (3.5-5.0) g/dL Ur Specific [place] >1.050 H (1.001-1.035) Urine Protein Trace H (Negative) Ur Leukocyte Esterase Small H (Negative) Hyaline Casts 8 H (0-2) /lpf Urine Mucus Rare H (None) /hpf 05/01/21 05/01/21 Range/Units 08:01 08:01 RBC (3.80-5.40) m/uL Hgb (11.4-16.0) gm/dL Hct (34.0-46.0) % MCV (80.0-100.0) fL MCH (25.0-35.0) pg PT 19.8 H (9.0-12.0) sec INR 2.0 H (<1.2) APTT (22.0-30.0) sec Sodium 132 L (137-145) mmol/L BUN (7-17) mg/dL Glucose 106 H (74-99) mg/dL Total Protein 5.1 L (6.3-8.2) g/dL Albumin 2.6 L (3.5-5.0) g/dL Ur Specific [place] (1.001-1.035) Urine Protein (Negative) Ur Leukocyte Esterase (Negative) Hyaline Casts (0-2) /lpf Urine Mucus (None) /hpf Diabetes panel 04/30/21 05/01/21 Range/Units 15:05 08:01 Sodium 133 L 132 L (137-145) mmol/L Potassium 4.0 3.9 (3.5-5.1) mmol/L Chloride 103 100 (98-107) mmol/L Carbon Dioxide 25 27 (22-30) mmol/L BUN 18 H 16 (7-17) mg/dL Creatinine 0.94 0.95 (0.52-1.04) mg/dL Glucose 105 H 106 H (74-99) mg/dL Calcium 8.4 8.4 (8.4-10.2) mg/dL AST 28 23 (14-36) U/L ALT 12 12 (4-34) U/L Alkaline Phosphatase 76 68 (38-126) U/L Total Protein 5.2 L 5.1 L (6.3-8.2) g/dL Albumin 2.8 L 2.6 L (3.5-5.0) g/dL Calcium panel 04/30/21 05/01/21 Range/Units 15:05 08:01 Calcium 8.4 8.4 (8.4-10.2) mg/dL Albumin 2.8 L 2.6 L (3.5-5.0) g/dL Pituitary panel 04/30/21 05/01/21 Range/Units 15:05 08:01 Sodium 133 L 132 L (137-145) mmol/L Potassium 4.0 3.9 (3.5-5.1) mmol/L Chloride 103 100 (98-107) mmol/L Carbon Dioxide 25 27 (22-30) mmol/L BUN 18 H 16 (7-17) mg/dL Creatinine 0.94 0.95 (0.52-1.04) mg/dL Glucose 105 H 106 H (74-99) mg/dL Calcium 8.4 8.4 (8.4-10.2) mg/dL Adrenal panel 04/30/21 05/01/21 Range/Units 15:05 08:01 Sodium 133 L 132 L (137-145) mmol/L Potassium 4.0 3.9 (3.5-5.1) mmol/L Chloride 103 100 (98-107) mmol/L Carbon Dioxide 25 27 (22-30) mmol/L BUN 18 H 16 (7-17) mg/dL Creatinine 0.94 0.95 (0.52-1.04) mg/dL Glucose 105 H 106 H (74-99) mg/dL Calcium 8.4 8.4 (8.4-10.2) mg/dL Total Bilirubin 0.5 0.5 (0.2-1.3) mg/dL AST 28 23 (14-36) U/L ALT 12 12 (4-34) U/L Alkaline Phosphatase 76 68 (38-126) U/L Total Protein 5.2 L 5.1 L (6.3-8.2) g/dL Albumin 2.8 L 2.6 L (3.5-5.0) g/dL - Imaging Comments: CT left lower extremity with large elongated hematoma within the medial musculature of the mid thigh. There is subcutaneous edema around the thigh. There is small a joint effusion. There is mild osteoarthritis in the knee joint. No fracture seen. Assessment and Plan Assessment: 1. Left thigh hematoma 2. Supratherapeutic INR 3. History of pulmonary embolism on Coumadin 4. History of IVC filter placement greater than 20 years ago Plan: 1. Elevate left lower extremity 2. Apply compression to left lower extremity 3. Continue to hold Coumadin at this time 4. Further recommendations forthcoming from vascular surgeon 5. Recommend use of walker to offload weightbearing to left lower extremity Thank you for this consultation, and allowing us take part in the plan of care of your patient during her hospital stay. The impression and plan of care has been dictated as directed. Dr. Weston I performed a history and examination of this patient, discussed the same with the dictator. I agree with the dictator's note ,documented as a scribe. Any additional findings or plans will be noted.
[2021-05-01] MEDS: LORATADINE 10 MG TAB PO SCH (21:15)
[2021-05-01] MEDS: MULTIVITAMINS, THERA 1 EACH TAB PO SCH (21:15)
[2021-05-01] MEDS: QUEtiapine 200 MG TAB PO SCH (22:15)
[2021-05-01] MEDS: PRAMIPEXOLE 0.5 MG TAB PO SCH (22:54)
[2021-05-02 07:01] LABS: INR 1.2 (<1.2); Prothrombin Time 12.8 sec (9.0-12.0)
[2021-05-02 07:03] LABS: Basophils % (A) 0 %; Eosinophils # (A) 0.1 k/uL (0-0.7); Eosinophils % (A) 3 %; HCT 20.4 % (34.0-46.0); Lymphocytes # (A) 1.3 k/uL (1.0-4.8); Lymphocytes % (A) 29 %; MCH 33.7 pg (25.0-35.0); MCHC 32.7 g/dL (31.0-37.0); MCV 103.2 fL (80.0-100.0); Macrocytosis Slight; Mean Platelet Volume 8.3; Monocytes # (A) 0.2 k/uL (0-1.0); Monocytes % (A) 5 %; Neutrophils # (A) 2.7 k/uL (1.3-7.7); Neutrophils % (A) 61 %; Platelet Count 186 k/uL (150-450); RBC 1.98 m/uL (3.80-5.40); RDW 14.4 % (11.5-15.5); WBC 4.4 k/uL (3.8-10.6)
[2021-05-02 07:04] LABS: HGB 6.7 gm/dL (11.4-16.0)
[2021-05-02] MEDS ORDERED: MORPHINE SULFATE 2 MG/ML SYRINGE IVP STA (07:26)
[2021-05-02] MEDS: LEVOTHYROXINE 100 MCG TAB PO SCH (07:47)
[2021-05-02] MEDS: GABAPENTIN 400 MG CAP PO SCH ×3 (08:49→21:55)
[2021-05-02] MEDS: CALCIUM CARB-VIT D 500 MG-5 MCG TAB PO SCH ×2 (08:50→21:55)
[2021-05-02] MEDS: FUROSEMIDE 40 MG TAB PO SCH (08:50)
[2021-05-02] MEDS: oxyCODONE-APAP 10-325MG 1 EACH TAB PO SCH ×4 (08:53→21:55)
[2021-05-02] MEDS: SODIUM CHLORIDE 0.45% 1,000 ML IV SCH (10:37)
--- NOTE | 2021-05-02 11:02 | CT ---
EXAMINATION TYPE: CT angio abd aorta w/Runoff DATE OF EXAM: 05/02/2021 HISTORY: Lt lower extremity hematoma CT DLP: 5313.6mGycm Automated Exposure Control for Dose Reduction was Utilized. CONTRAST: CTA scan of the abdomen and pelvis extending into bilateral lower extremities is performed without or al but without and with IV Contrast, patient injected with 100 mL of Isovue 370. Three-D reconstructe d images are created on an independent workstation and reviewed. COMPARISON: Prior CT abdomen and pelvis February 04, 2019. Prior CT left lower extremity April 30, 2021 FINDINGS: VASCULAR: Patent celiac artery, SMA, and bilateral single renal arteries along with CORINNA without signi ficant stenosis. [id number] peripheral plaque in the infrarenal aorta without significant steno sis. No AAA or dissection. Patent iliac arterial system bilaterally without significant stenosis. Pat ency into the femoral arteries bilaterally without significant plaque or stenosis. The right lower extremity there is patent superficial femoral artery into the popliteal artery with s atisfactory bifurcation and trifurcation, past mid leg level there is suboptimal contrast opacificati on. No significant plaque or stenosis. In the left lower extremity there is patent superficial femora l artery into the popliteal artery with satisfactory bifurcation and trifurcation below knee, no sign ificant plaque or stenosis. Below proximal leg levels suboptimal evaluation due to poor bolus. There is asymmetric filling or patency of the left superficial femoral and popliteal vein up to the left gr oin, suspected early filling. LUNG BASES: No significant abnormality is appreciated. LIVER/GB: Liver is diffusely low dense on noncontrast images consistent with diffuse fatty infiltrati on. Cholecystectomy clips are redemonstrated. PANCREAS: No significant abnormality is seen. SPLEEN: No significant abnormality is seen. ADRENALS: No significant abnormality is seen. KIDNEYS: No significant abnormality is seen. BOWEL: Distal colonic diverticulosis greatest in the sigmoid colon redemonstrated. UTERUS/ADNEXA: Uterus is redemonstrated surgically absent. LYMPH NODES: No greater than 1cm abdominal or pelvic lymph nodes are appreciated. OSSEOUS STRUCTURES: Moderate disc space narrowing and vacuum disc phenomenon L4-L5 level redemonstrat ed. Facet arthropathy in the lower lumbar spine redemonstrated. OTHER: Persistent infrarenal IVC filter. Persistent mesh type material overlying anterior abdominal w all with more superficial thin-walled fluid collection presumed postsurgical seroma anterior to this LOWER EXTREMITIES: Asymmetric left lower extremity enlargement begins just below the level with moder ate diffuse subcutaneous edema extending to ankle level. Symmetric moderate tricompartment degenerati ve changes in the knees with narrowing and spurring. There is persistent medial intramuscular hematoma elongated oval in shape in the posterior medial lef t lower extremity beginning at proximal to mid diaphyseal level of the left femur extending to distal diaphyseal level measuring approximately 17 cm in length sagittal image 92. This measures approximat armani 6.8 x 4.1 cm in size axial image 105 versus prior study 7.5 x 5.2 cm-axial image 94 and 19 cm in length coronal image 73. No active hemorrhage or feeding vessel identified. Impression: Persistent large elongated intramuscular hematoma medial proximal left lower extremity is slightly smaller in size from 2 days earlier. No feeding vessel or active bleed identified. Persiste nt asymmetric left lower extremity enlargement with moderate diffuse subcutaneous edema. Patent left lower extremity draining vein noted.
--- NOTE | 2021-05-02 13:03 | P.PN ---
Subjective Progress Note Date: 05/02/21 Patient seen and examined at bedside. She has increased swelling and discomfort to left lower extremity. Repeat INR is 1.2. Denies any acute changes through the night. She denies any chest pain or shortness of breath. Denies any abdominal pain, nausea, or vomiting. Objective - Vital Signs Vital signs: Vital Signs Temp 99.2 F 05/02/21 08:00 Pulse 89 05/02/21 08:00 Resp 18 05/02/21 08:15 BP 118/68 05/02/21 08:00 Pulse Ox 96 05/02/21 08:00 Intake & Output 05/01/21 05/02/21 05/02/21 18:59 06:59 18:59 Intake Total 0 200 Balance 0 200 Intake: Oral 0 200 Other: Voiding Method Toilet Toilet # Voids 2 2 - Exam General appearance: The patient is alert, oriented, in no acute distress. Obese. HET: Head is normocephalic and atraumatic. Neck: Supple without lymphadenopathy. Trachea midline. Heart: S1 S2. Regular rate and rhythm. Lungs: Clear to auscultation. Abdomen: Soft, nontender, nondistended. Extremities: Left lower extremity with ecchymosis along the posterior and medial aspect of thigh along with swelling and tenderness to palpation. Palpable bilateral femoral and pedal pulses. Good capillary refill. Neurological: No focal deficits. Strength and sensation are grossly intact. - Labs CBC & Chem 7: 05/02/21 05:52 05/01/21 08:01 Labs: Abnormal Lab Results - Last 24 Hours (Table) 05/02/21 05/02/21 05/02/21 Range/Units 05:52 05:52 07:45 RBC 1.98 L (3.80-5.40) m/uL Hgb 6.7 L* (11.4-16.0) gm/dL Hct 20.4 L (34.0-46.0) % MCV 103.2 H (80.0-100.0) fL PT 12.8 H (9.0-12.0) sec INR 1.2 H (<1.2) Crossmatch See Detail Assessment and Plan Assessment: 1. Left thigh hematoma 2. Supratherapeutic INR 3. History of pulmonary embolism on Coumadin 4. History of IVC filter placement greater than 20 years ago Plan: 1. Elevate left lower extremity 2. CTA abdomen with runoff ordered and reviewed. No surgical intervention at this time indicated. 3. Continue to hold Coumadin/intact coagulation at this time 4. Discussed with the primary medicine team recommend discontinuing anticoagulation permanently 5. Recommend use of walker to offload weight bearing to left lower extremity Thank you for this consultation, and allowing us take part in the plan of care of your patient during her hospital stay. The impression and plan of care has been dictated as directed. Dr. Whaley I performed a history and examination of this patient, discussed the same with the dictator. I agree with the dictator's note ,documented as a scribe. Any additional findings or plans will be noted.
--- NOTE | 2021-05-02 16:23 | P.PN ---
Subjective Patient was complaining of increased pain this morning requiring IV morphine Objective - Vital Signs Vital signs: Vital Signs Temp 98.6 F 05/02/21 15:20 Pulse 81 05/02/21 15:20 Resp 16 05/02/21 15:20 BP 97/63 05/02/21 15:20 Pulse Ox 98 05/02/21 15:20 Intake & Output 05/01/21 05/02/21 05/02/21 18:59 06:59 18:59 Intake Total 0 688 Balance 0 688 Intake: Oral 0 400 Blood Product 288 Rc Pheresis As-3 Unit 288 [id number] Other: Voiding Method Toilet Toilet # Voids 2 2 - Exam General: The patient is awake and alert, in no distress Eye: there is normal conjunctiva bilaterally. Neck: The neck is supple, there is no JVD. Cardiovascular: Normal S1-S2, no S3-S4, no murmurs. Respiratory: Lungs clear to auscultation bilaterally Gastrointestinal: Abdomen is soft, nontender Musculoskeletal: There is no pedal edema. There is a large area of bruising measuring approximately 10 x 15 cm on the medial aspect of the left thigh Neurological:. Speech is normal. Skin: Skin is warm and dry - Labs CBC & Chem 7: 05/02/21 05:52 05/01/21 08:01 Labs: Abnormal Lab Results - Last 24 Hours (Table) 05/02/21 05/02/21 05/02/21 Range/Units 05:52 05:52 07:45 RBC 1.98 L (3.80-5.40) m/uL Hgb 6.7 L* (11.4-16.0) gm/dL Hct 20.4 L (34.0-46.0) % MCV 103.2 H (80.0-100.0) fL PT 12.8 H (9.0-12.0) sec INR 1.2 H (<1.2) Crossmatch See Detail Assessment and Plan Assessment: 1. Spontaneous left thigh hematoma 2. Coagulopathy with supratherapeutic INR on presentation status post vitamin K in the ER 3. Acute blood loss anemia requiring 1 unit of PRBC transfusion 4. History of PE with prior IVC filter placement (per patient reports IVC filter is broken) 5. Chronic neck pain with prior C-spine fusion Today, I reviewed her medication list and lab work results. Computed tomography scan of the left thigh showed a 20 x 7 cm large hematoma. Patient was seen and evaluated by vascular surgery and a CT angiogram showed no feeding vessel or active bleeding Continue intermittent icing. Continue to hold aspirin and Coumadin. Repeat INR 1.2 Repeat CBC in the morning.
[2021-05-02] MEDS: MULTIVITAMINS, THERA 1 EACH TAB PO SCH (21:56)
[2021-05-02] MEDS: QUEtiapine 200 MG TAB PO SCH (21:56)
[2021-05-02] MEDS: PRAMIPEXOLE 0.5 MG TAB PO SCH (21:56)
[2021-05-02] MEDS: LORATADINE 10 MG TAB PO SCH (21:56)
[2021-05-02 23:24] LABS: Basophils % (A) 0 %; Eosinophils # (A) 0.2 k/uL (0-0.7); Eosinophils % (A) 3 %; HCT 20.5 % (34.0-46.0); Lymphocytes # (A) 1.6 k/uL (1.0-4.8); Lymphocytes % (A) 34 %; MCHC 33.6 g/dL (31.0-37.0); MCV 101.1 fL (80.0-100.0); Macrocytosis Slight; Mean Platelet Volume 8.7; Monocytes # (A) 0.2 k/uL (0-1.0); Monocytes % (A) 4 %; Neutrophils # (A) 2.7 k/uL (1.3-7.7); Neutrophils % (A) 56 %; Platelet Count 176 k/uL (150-450); RBC 2.03 m/uL (3.80-5.40); RDW 15.9 % (11.5-15.5); WBC 4.8 k/uL (3.8-10.6)
[2021-05-02 23:32] LABS: HGB 6.9 gm/dL (11.4-16.0)
[2021-05-03] MEDS: SODIUM CHLORIDE 0.45% 1,000 ML IV SCH (06:04)
[2021-05-03] MEDS: LEVOTHYROXINE 100 MCG TAB PO SCH (06:04)
[2021-05-03] MEDS: oxyCODONE-APAP 10-325MG 1 EACH TAB PO SCH ×4 (07:27→22:02)
[2021-05-03] MEDS: FUROSEMIDE 40 MG TAB PO SCH (07:27)
[2021-05-03] MEDS: CALCIUM CARB-VIT D 500 MG-5 MCG TAB PO SCH ×2 (07:27→20:08)
[2021-05-03] MEDS: GABAPENTIN 400 MG CAP PO SCH ×3 (07:28→22:03)
[2021-05-03] MEDS ORDERED: MORPHINE SULFATE 2 MG/ML SYRINGE IVP STA (07:34)
[2021-05-03 09:17] LABS: Basophils # (A) 0.02 X 10*3/uL (0.00-0.10); Basophils % (A) 0.4 %; Eosinophils # (A) 0.16 X 10*3/uL (0.04-0.35); Eosinophils % (A) 3.5 %; HCT 23.4 % (37.2-46.3); HGB 7.6 g/dL (12.0-15.0); Lymphocytes # (A) 1.41 X 10*3/uL (0.90-5.00); Lymphocytes % (A) 30.5 %; MCH 32.2 pg (27.0-32.0); MCHC 32.5 g/dL (32.0-37.0); MCV 99.2 fL (80.0-97.0); Mean Platelet Volume 11.4 fL (9.5-12.2); Monocytes # (A) 0.34 X 10*3/uL (0.20-1.00); Monocytes % (A) 7.3 %; Neutrophils # (A) 2.67 X 10*3/uL (1.80-7.70); Neutrophils % (A) 57.7 %; Platelet Count 183 X 10*3/uL (140-440); RBC 2.36 X 10*6/uL (4.10-5.20); RDW 15.9 % (11.5-14.5); WBC 4.63 X 10*3/uL (4.50-10.00)
[2021-05-03 11:14] LABS: African American GFR (CKD) >90 (>60 ml/min/1.73 sqM); Anion Gap 5 mmol/L; Blood Urea Nitrogen 11 mg/dL (7-17); Calcium 8.3 mg/dL (8.4-10.2); Carbon Dioxide 28 mmol/L (22-30); Chloride 100 mmol/L (98-107); Glucose 116 mg/dL (74-99); Non-African American GFR(CKD) >90 (>60 ml/min/1.73 sqM); Potassium 3.6 mmol/L (3.5-5.1); Sodium 133 mmol/L (137-145)
[2021-05-03 11:16] LABS: Prothrombin Time 10.4 sec (9.0-12.0)
--- NOTE | 2021-05-03 13:12 | P.PN ---
Subjective Progress Note Date: 05/03/21 Patient seen and examined at bedside. Patient still with complaints of left lower extremity pain in her thigh. She had a repeat CTA of the abdomen and pelvis with runoff that actually shows hematoma to be decreasing in size. There is no indication for any vascular surgical intervention. Discussed with patient any further management will be at the discretion of orthopedic surgeon. We do recommend elevation and compression. Objective - Vital Signs Vital signs: Vital Signs Temp 99.0 F 05/03/21 07:44 Pulse 85 05/03/21 07:44 Resp 18 05/03/21 07:44 BP 135/69 05/03/21 07:44 Pulse Ox 97 05/03/21 07:44 Intake & Output 05/02/21 05/03/21 05/03/21 18:59 06:59 18:59 Intake Total 688 1310 Output Total 400 Balance 288 1310 Intake: Oral 400 1000 Blood Product 288 310 Rc As-1 Unit 310 [id number] Rc Pheresis As-3 Unit 288 [id number] Output: Urine 400 Other: Voiding Method Toilet # Voids 2 3 - Exam General appearance: The patient is alert, oriented, in no acute distress. Obese. HET: Head is normocephalic and atraumatic. Neck: Supple without lymphadenopathy. Trachea midline. Heart: S1 S2. Regular rate and rhythm. Lungs: Clear to auscultation. Abdomen: Soft, nontender, nondistended. Extremities: Left lower extremity with ecchymosis along the posterior and medial aspect of thigh along with swelling and tenderness to palpation. Palpable bilateral femoral and pedal pulses. Good capillary refill. Neurological: No focal deficits. Strength and sensation are grossly intact. - Labs CBC & Chem 7: 05/03/21 05:48 05/03/21 10:31 Labs: Abnormal Lab Results - Last 24 Hours (Table) 05/02/21 05/02/21 05/03/21 Range/Units 07:45 22:51 05:48 RBC 2.03 L 2.36 L (3.80-5.40) m/uL Hgb 6.9 L* 7.6 L (11.4-16.0) gm/dL Hct 20.5 L 23.4 L (34.0-46.0) % MCV 101.1 H 99.2 H (80.0-100.0) fL MCH 32.2 H (27.0-32.0) pg RDW 15.9 H 15.9 H (11.5-15.5) % Absolute Nucleated RBC 0.02 H (0.00-0.00) X 10*3/uL NRBC/100 WBC Diff 0.4 H (0.0-0.0) /100 WBCS Crossmatch See Detail Assessment and Plan Assessment: 1. Left thigh hematoma 2. Supratherapeutic INR 3. History of pulmonary embolism on Coumadin 4. History of IVC filter placement greater than 20 years ago Plan: 1. Elevate and add compression wrap to left lower extremity 2. CTA abdomen with runoff ordered and reviewed. No vascular surgical intervention at this time indicated. 3. Continue to hold Coumadin/intact coagulation at this time 4. Discussed with the primary medicine team recommend discontinuing anticoagulation permanently 5. Recommend use of walker to offload weight bearing to left lower extremity 6. Appreciate recommendations from orthopedics surgery, further management deferred to orthopedics Thank you for this consultation, we will sign off at this time. The impression and plan of care has been dictated as directed. Dr. Weston I performed a history and examination of this patient, discussed the same with the dictator. I agree with the dictator's note ,documented as a scribe. Any additional findings or plans will be noted.
--- NOTE | 2021-05-03 14:38 | P.PN ---
Subjective Patient is complaining of increased pain in her left leg today. She required another unit of blood last night. She is hemodynamically stable. Objective - Vital Signs Vital signs: Vital Signs Temp 99.0 F 05/03/21 07:44 Pulse 85 05/03/21 07:44 Resp 18 05/03/21 07:44 BP 135/69 05/03/21 07:44 Pulse Ox 97 05/03/21 07:44 Intake & Output 05/02/21 05/03/21 05/03/21 18:59 06:59 18:59 Intake Total 688 1310 Output Total 400 Balance 288 1310 Intake: Oral 400 1000 Blood Product 288 310 Rc As-1 Unit 310 [id number] Rc Pheresis As-3 Unit 288 [id number] Output: Urine 400 Other: Voiding Method Toilet # Voids 2 3 - Exam General: The patient is awake and alert, in no distress Eye: there is normal conjunctiva bilaterally. Neck: The neck is supple, there is no JVD. Cardiovascular: Normal S1-S2, no S3-S4, no murmurs. Respiratory: Lungs clear to auscultation bilaterally Gastrointestinal: Abdomen is soft, nontender Musculoskeletal: There is no pedal edema. There is a large area of bruising measuring approximately 10 x 15 cm on the medial aspect of the left thigh. Left eye is significantly larger compared to the right Neurological:. Speech is normal. Skin: Skin is warm and dry - Labs CBC & Chem 7: 05/03/21 05:48 05/03/21 10:31 Labs: Abnormal Lab Results - Last 24 Hours (Table) 05/02/21 05/02/21 05/03/21 Range/Units 07:45 22:51 05:48 RBC 2.03 L 2.36 L (3.80-5.40) m/uL Hgb 6.9 L* 7.6 L (11.4-16.0) gm/dL Hct 20.5 L 23.4 L (34.0-46.0) % MCV 101.1 H 99.2 H (80.0-100.0) fL MCH 32.2 H (27.0-32.0) pg RDW 15.9 H 15.9 H (11.5-15.5) % Absolute Nucleated RBC 0.02 H (0.00-0.00) X 10*3/uL NRBC/100 WBC Diff 0.4 H (0.0-0.0) /100 WBCS Sodium (137-145) mmol/L Glucose (74-99) mg/dL Calcium (8.4-10.2) mg/dL Crossmatch See Detail 05/03/21 Range/Units 10:31 RBC (3.80-5.40) m/uL Hgb (11.4-16.0) gm/dL Hct (34.0-46.0) % MCV (80.0-100.0) fL MCH (27.0-32.0) pg RDW (11.5-15.5) % Absolute Nucleated RBC (0.00-0.00) X 10*3/uL NRBC/100 WBC Diff (0.0-0.0) /100 WBCS Sodium 133 L (137-145) mmol/L Glucose 116 H (74-99) mg/dL Calcium 8.3 L (8.4-10.2) mg/dL Crossmatch Assessment and Plan Assessment: 1. Spontaneous left thigh hematoma 2. Coagulopathy with supratherapeutic INR on presentation status post vitamin K in the ER 3. Acute blood loss anemia requiring 2 units of PRBC transfusion during this admission 4. History of PE with prior IVC filter placement (per patient reports IVC filter is broken) 5. Chronic neck pain with prior C-spine fusion Today, I reviewed her medication list and lab work results. Computed tomography scan of the left thigh showed a 20 x 7 cm large hematoma. Patient was seen and evaluated by vascular surgery and a CT angiogram showed no feeding vessel or active bleeding Continue intermittent icing. Continue to hold aspirin and Coumadin. Repeat INR 1.0 Repeat CBC in the morning.
[2021-05-03] MEDS: QUEtiapine 200 MG TAB PO SCH (20:08)
[2021-05-03] MEDS: MULTIVITAMINS, THERA 1 EACH TAB PO SCH (20:08)
[2021-05-03] MEDS: PRAMIPEXOLE 0.5 MG TAB PO SCH (20:08)
[2021-05-03] MEDS: LORATADINE 10 MG TAB PO SCH (20:08)
[2021-05-04] MEDS: LEVOTHYROXINE 100 MCG TAB PO SCH (05:39)
[2021-05-04] MEDS ORDERED: MORPHINE SULFATE 2 MG/ML SYRINGE IVP PRN (06:01)
[2021-05-04] MEDS: CALCIUM CARB-VIT D 500 MG-5 MCG TAB PO SCH ×2 (07:37→20:52)
[2021-05-04] MEDS: FUROSEMIDE 40 MG TAB PO SCH (07:37)
[2021-05-04] MEDS: GABAPENTIN 400 MG CAP PO SCH ×3 (07:37→22:19)
[2021-05-04] MEDS: oxyCODONE-APAP 10-325MG 1 EACH TAB PO SCH ×4 (07:37→22:19)
[2021-05-04 08:06] LABS: Anisocytosis Slight; HCT 25.3 % (34.0-46.0); MCH 34.1 pg (25.0-35.0); MCHC 33.5 g/dL (31.0-37.0); Macrocytosis Slight; Mean Platelet Volume 8.8; Platelet Count 200 k/uL (150-450); RBC 2.48 m/uL (3.80-5.40); RDW 16.7 % (11.5-15.5); WBC 4.1 k/uL (3.8-10.6)
[2021-05-04 08:19] LABS: HGB 8.5 gm/dL (11.4-16.0)
--- NOTE | 2021-05-04 11:40 | P.PN ---
Subjective Patient is doing well today. Her pain is better controlled. She is able to get up and walk around with no difficulty. Hemoglobin stabilized around 8.5. Objective - Vital Signs Vital signs: Vital Signs Temp 98.2 F 05/04/21 08:00 Pulse 64 05/04/21 08:00 Resp 17 05/04/21 08:00 BP 112/53 05/04/21 08:00 Pulse Ox 95 05/04/21 08:00 Intake & Output 05/03/21 05/04/21 05/04/21 18:59 06:59 18:59 Intake Total 600 Balance 600 Intake: Intake, IV Titration 600 Amount Sodium Chloride 0.45% 1, 600 000 ml @ 50 mls/hr IV . Q20H [facility] Rx#:[id number] Other: Voiding Method Toilet # Voids 3 - Exam General: The patient is awake and alert, in no distress Eye: there is normal conjunctiva bilaterally. Neck: The neck is supple, there is no JVD. Cardiovascular: Normal S1-S2, no S3-S4, no murmurs. Respiratory: Lungs clear to auscultation bilaterally Gastrointestinal: Abdomen is soft, nontender Musculoskeletal: There is no pedal edema. There is a large area of bruising measuring approximately 10 x 15 cm on the medial aspect of the left thigh. Left eye is significantly larger compared to the right Neurological:. Speech is normal. Skin: Skin is warm and dry - Labs CBC & Chem 7: 05/04/21 06:47 05/03/21 10:31 Labs: Abnormal Lab Results - Last 24 Hours (Table) 05/04/21 Range/Units 06:47 RBC 2.48 L (3.80-5.40) m/uL Hgb 8.5 L D (11.4-16.0) gm/dL Hct 25.3 L (34.0-46.0) % MCV 102.0 H (80.0-100.0) fL RDW 16.7 H (11.5-15.5) % Assessment and Plan Assessment: 1. Spontaneous left thigh hematoma 2. Coagulopathy with supratherapeutic INR on presentation status post vitamin K in the ER 3. Acute blood loss anemia requiring 2 units of PRBC transfusion during this admission 4. History of PE with prior IVC filter placement (per patient reports IVC filter is broken) 5. Chronic neck pain with prior C-spine fusion Today, I reviewed her medication list and lab work results. Computed tomography scan of the left thigh showed a 20 x 7 cm large hematoma. Patient was seen and evaluated by vascular surgery and a CT angiogram showed no feeding vessel or active bleeding Continue to hold aspirin and Coumadin. Repeat INR 1.0 Repeat CBC in the morning. Continue observation for 24 hours and discharged home in the morning if stable
--- NOTE | 2021-05-04 13:43 | P.PN ---
Subjective Progress Note Date: 05/04/21 Patient is a pleasant 60-year-old female seen at bedside this morning in consultation for left thigh hematoma. She was admitted through the emergency department yesterday 04/30/2021 with worsening left thigh pain and bruising. Patient said that 2 days ago she woke up with some discomfort in the medial as pect of her left thigh and noted a small bruising that she did not make so much of it and yesterday noted the bruising was more extensive and a lot more painful so she decided to come to the emergency room for further evaluation. She is on anti-coagulation therapy Coumadin for history of pulmonary emboli. In the ER, INR was greater than 10. Patient was noted to have evidence of left thigh mraguerite jhony. She denies any trauma or fall. Patient's report taking her Coumadin as prescribed. She has no fever or chills. She denies numbness or tingling. She has no chest pain or shortness of breath. 05/04/21: Patient was evaluated bedside this morning. Orthopedics is following for a left thigh hematoma. Patient states her pain has improved significantly since admission. She was able to ambulate with a walker today per nursing. She has no new complaints or concerns. She denies numbness or tingling of the left lower extremity. Objective - Vital Signs Vital signs: Vital Signs Temp 98.2 F 05/04/21 08:00 Pulse 64 05/04/21 08:00 Resp 17 05/04/21 08:00 BP 112/53 05/04/21 08:00 Pulse Ox 95 05/04/21 08:00 Intake & Output 05/03/21 05/04/21 05/04/21 18:59 06:59 18:59 Intake Total 600 Balance 600 Intake: Intake, IV Titration 600 Amount Sodium Chloride 0.45% 1, 600 000 ml @ 50 mls/hr IV . Q20H [facility] Rx#:[id number] Other: Voiding Method Toilet # Voids 3 - Exam On examination, patient is lying in bed in no apparent distress. She is alert and orientated x3. A focused examination of the left thigh was conducted. There is diffuse swelling and ecchymosis of the posterior left thigh. The thigh is soft and compressible. There is no pain with palpation of the knee, lower leg, ankle, foot. Calf is soft and non-tender. Patient has good strength and ROM of the left ankle. Motor and sensory function intact left lower extremity. Dorsalis pedis pulse +2, the left lower extremity is warm and well perfused. - Labs CBC & Chem 7: 05/04/21 06:47 05/03/21 10:31 Labs: Abnormal Lab Results - Last 24 Hours (Table) 05/04/21 Range/Units 06:47 RBC 2.48 L (3.80-5.40) m/uL Hgb 8.5 L D (11.4-16.0) gm/dL Hct 25.3 L (34.0-46.0) % MCV 102.0 H (80.0-100.0) fL RDW 16.7 H (11.5-15.5) % Assessment and Plan Assessment: Left thigh hematoma Plan: - Patient is doing very well today. Her left thigh continues to improve. Patient may continue to weight bear to tolerance with a walker. - No surgical intervention planned at this time. - Recommended rest, elevation, compression of the left lower extremity. - Medical management per admitting team and vascular surgery. - We will continue to follow patient peripherally and make recommendations as needed.
[2021-05-04 14:24] LABS: Eosinophils # (M) 0.08 k/uL (0-0.7); Lymphocytes # (M) 0.86 k/uL (1.0-4.8); Monocytes # (M) 0.25 k/uL (0-1.0); Myelocytes # (M) 0.04 k/uL (0); Myelocytes % 1 %; Neutrophils # (M) 2.91 k/uL (1.3-7.7); Neutrophils % (M) 71 %; Nucleated Red Blood Cells 0 /100 WBC (0-0); Polychromasia Present; Total Cells Counted 200
[2021-05-04 14:25] LABS: Poikilocytosis (M) Present
[2021-05-04] MEDS ORDERED: MORPHINE SULFATE 2 MG/ML SYRINGE IVP STA (14:51)
[2021-05-04] MEDS: LORATADINE 10 MG TAB PO SCH (20:52)
[2021-05-04] MEDS: QUEtiapine 200 MG TAB PO SCH (20:52)
[2021-05-04] MEDS: PRAMIPEXOLE 0.5 MG TAB PO SCH (20:52)
[2021-05-04] MEDS: MULTIVITAMINS, THERA 1 EACH TAB PO SCH (20:52)
[2021-05-05] MEDS: LEVOTHYROXINE 100 MCG TAB PO SCH (05:35)
[2021-05-05] MEDS ORDERED: MORPHINE SULFATE 2 MG/ML SYRINGE IVP STA (07:56)
[2021-05-05] MEDS: GABAPENTIN 400 MG CAP PO SCH (08:09)
[2021-05-05] MEDS: CALCIUM CARB-VIT D 500 MG-5 MCG TAB PO SCH (08:09)
[2021-05-05] MEDS: FUROSEMIDE 40 MG TAB PO SCH (08:10)
[2021-05-05] MEDS: oxyCODONE-APAP 10-325MG 1 EACH TAB PO SCH ×2 (09:15→13:07)
[2021-05-05 09:32] LABS: HGB 8.1 g/dL (12.0-15.0); MCH 34.5 pg (27.0-32.0); MCHC 32.4 g/dL (32.0-37.0); MCV 106.4 fL (80.0-97.0); Mean Platelet Volume 11.3 fL (9.5-12.2); Platelet Count 202 X 10*3/uL (140-440); RBC 2.35 X 10*6/uL (4.10-5.20); RDW 17.1 % (11.5-14.5); WBC 4.17 X 10*3/uL (4.50-10.00)
[2021-05-05 11:04] LABS: Basophils # (A) 0.01 X 10*3/uL (0.00-0.10); Basophils % (A) 0.2 %; Eosinophils # (A) 0.12 X 10*3/uL (0.04-0.35); Eosinophils % (A) 2.9 %; Lymphocytes # (A) 1.09 X 10*3/uL (0.90-5.00); Lymphocytes % (A) 26.1 %; Monocytes # (A) 0.31 X 10*3/uL (0.20-1.00); Monocytes % (A) 7.4 %; Neutrophils # (A) 2.61 X 10*3/uL (1.80-7.70); Neutrophils % (A) 62.7 %
[2021-05-05 11:05] LABS: Macrocytosis (M) 2+; Polychromasia 2+
--- NOTE | 2021-05-05 14:27 | P.DS ---
Providers Date of admission: 04/30/21 16:26 Expected date of discharge: 05/05/21 Attending physician: Clary June Consults: 04/30/21 16:25 Consult Physician Urgent Consulting Provider: Shawn Buck Consult Reason/Comments: left thigh hematoma, PCP request Do you want consulting provider notified?: Yes 05/01/21 12:35 Consult Physician Urgent Consulting Provider: Mable Weston Consult Reason/Comments: left thigh hematoma Do you want consulting provider notified?: Yes Primary care physician: Darby Pittman Hospital Course: This is a 60-year-old female with past medical history noted below significant for history of pulmonary emboli on anticoagulation with Coumadin and presented to the emergency room with worsening left thigh swelling and pain with bruising. She was found to have INR greater than 10. She was admitted to the hospital for further management of her medical problems noted below. 1. Spontaneous left thigh hematoma 2. Coagulopathy with supratherapeutic INR on presentation status post vitamin K in the ER 3. Acute blood loss anemia requiring 2 units of PRBC transfusion during this admission 4. History of PE with prior IVC filter placement (per patient reports IVC filter is broken) 5. Chronic neck pain with prior C-spine fusion Computed tomography scan of the left thigh showed a 20 x 7 cm large hematoma. Patient was seen and evaluated by vascular surgery and a CT angiogram showed no feeding vessel or active bleeding Continue to hold aspirin and Coumadin. Repeat INR 1.0 Patient was seen and evaluated by me on the day of discharge. She was up ambulating in her room with no difficulty. I had a prolonged discussion with her and her daughter. Patient will need follow-up with her PCP in the next week. Depending on her clinical condition anticoagulation may be resumed but definitely not Coumadin. Patient should be using one of the novel agent to prevent supratherapeutic INR in the future. Patient Condition at Discharge: Serious Plan - Discharge Summary Discharge Rx Participant: Yes New Discharge Prescriptions: No Action Furosemide [Lasix] 40 mg PO DAILY Multivitamins, Thera [Multivitamin (formulary)] 1 tab PO HS Calcium Carbonate/Vitamin D3 [Calcium 600-Vit D3 400 Caplet] 1 tab PO BID oxyCODONE-APAP 10-325MG [Percocet 10-325 mg] 1 tab PO QID QUEtiapine [SEROquel] 200 mg PO HS Pramipexole [Mirapex] 0.5 mg PO HS Diclofenac Sodium [Voltaren] 75 mg PO BID Levothyroxine Sodium [Synthroid] 100 mcg PO DAILY Aspirin EC [Ecotrin Low Dose] 81 mg PO DAILY Prochlorperazine [Compazine] 5 mg PO Q12H PRN PRN Reason: Nausea And Vomiting metFORMIN HCL [Glucophage] 500 mg PO BID Warfarin [Coumadin] 12.5 mg PO DIRECTED Loratadine [Claritin] 10 mg PO HS Warfarin [Coumadin] 10 mg PO DIRECTED Neuriva Plus Supplement 1 tab PO HS Orphenadrine Citrate [Orphenadrine Citrate ER] 100 mg PO BID Gabapentin 1,200 mg PO TID Discharge Medication List Aspirin EC [Ecotrin Low Dose] 81 mg PO DAILY 01/14/17 [History] Calcium Carbonate/Vitamin D3 [Calcium 600-Vit D3 400 Caplet] 1 tab PO BID 01/14/17 [History] Diclofenac Sodium [Voltaren] 75 mg PO BID 01/14/17 [History] Furosemide [Lasix] 40 mg PO DAILY 01/14/17 [History] Levothyroxine Sodium [Synthroid] 100 mcg PO DAILY 01/14/17 [History] Multivitamins, Thera [Multivitamin (formulary)] 1 tab PO HS 01/14/17 [History] Pramipexole [Mirapex] 0.5 mg PO HS 01/14/17 [History] QUEtiapine [SEROquel] 200 mg PO HS 01/14/17 [History] oxyCODONE-APAP 10-325MG [Percocet 10-325 mg] 1 tab PO QID 01/14/17 [History] Loratadine [Claritin] 10 mg PO HS 02/04/19 [History] Prochlorperazine [Compazine] 5 mg PO Q12H PRN 02/04/19 [History] Warfarin [Coumadin] 10 mg PO DIRECTED 02/04/19 [History] Warfarin [Coumadin] 12.5 mg PO DIRECTED 02/04/19 [History] metFORMIN HCL [Glucophage] 500 mg PO BID 02/04/19 [History] Gabapentin 1,200 mg PO TID 04/30/21 [History] Neuriva Plus Supplement 1 tab PO HS 04/30/21 [History] Orphenadrine Citrate [Orphenadrine Citrate ER] 100 mg PO BID 04/30/21 [History] Follow up Appointment(s)/Referral(s): Draby Pittman DO [Primary Care Provider] - 1-2 days
[2021-05-05 15:03] VITALS: BP 123/75; PULSE 75; RESP 17; TEMP 98.7
== END 2021-05-05 15:52 | disposition home or self-care (01) | DRG 556 ==
LOC: EC 13:53 → 3SCARD 16:26 → 4SSUR 05-01 13:29
PROVIDERS: ADMIT Internal Medicine; ATTEND Internal Medicine
PROC: 30233N1 Transfusion of Nonautologous Red Blood Cells into Peripheral Vein, Percutaneous Approach (ICD-10-PCS; principal; 2021-05-02)
DX: M79.81 Nontraumatic hematoma of soft tissue (principal); D68.32 Hemorrhagic disorder due to extrinsic circulating anticoagulants; D62 Acute posthemorrhagic anemia; Z20.822 Contact with and (suspected) exposure to COVID-19; T45.515A Adverse effect of anticoagulants, initial encounter; T82.51 Breakdown (mechanical) of other cardiac and vascular devices and implants; E07.9 Disorder of thyroid, unspecified; G89.29 Other chronic pain; M54.2 Cervicalgia; M54.9 Dorsalgia, unspecified; M79.7 Fibromyalgia; G47.00 Insomnia, unspecified; M17.10 Unilateral primary osteoarthritis, unspecified knee; Z79.82 Long term (current) use of aspirin; Z79.890 Hormone replacement therapy; Z79.84 Long term (current) use of oral hypoglycemic drugs; Z79.01 Long term (current) use of anticoagulants; Z79.891 Long term (current) use of opiate analgesic; Z79.899 Other long term (current) drug therapy; Z86.711 Personal history of pulmonary embolism; Z86.718 Personal history of other venous thrombosis and embolism; Z90.49 Acquired absence of other specified parts of digestive tract; Z87.19 Personal history of other diseases of the digestive system; Z98.891 History of uterine scar from previous surgery; Z90.710 Acquired absence of both cervix and uterus; Z87.42 Personal history of other diseases of the female genital tract; Z87.891 Personal history of nicotine dependence; Z98.1 Arthrodesis status; Z98.890 Other specified postprocedural states; Z88.0 Allergy status to penicillin; Z88.8 Allergy status to other drugs, medicaments and biological substances; Z80.3 Family history of malignant neoplasm of breast
CPT/HCPCS: 36415; 75635; 80048; 80053; 81001; 82550; 83605; 84484; 85025; 85610; 85730; 86850; 86900; 86901; 86920; 87635; 93005; 96374; 96375; 99285